=== PATIENT | female | born 2000 | race Caucasian/White ===

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

== ENCOUNTER 2020-02-01 13:04 | Emergency (ER) | payer MEDICAID ==
[~2020-02-01] VITALS: Ht 167.7 cm; Wt 81.6 kg
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
== END 2020-02-01 13:47 | disposition home or self-care (01) ==
LOC: EDUNIT# 13:04 → ER FS 13:06
DX: T25.021A Burn of unspecified degree of right foot, initial encounter (principal); X12.XXXA Contact with other hot fluids, initial encounter
CPT/HCPCS: 99281

== ENCOUNTER 2020-02-24 10:19 | Emergency (ER) | payer MEDICAID ==
[~2020-02-24] VITALS: Ht 162.6 cm; Wt 83.7 kg
[2020-02-24 10:37] LABS: CLARITY,URINE SL CLOUDY; COLOR,URINE DARK YELLOW; GLUCOSE, URINE (UA) NEGATIVE (NEGATIVE); KETONES,URINE NEGATIVE (NEGATIVE); NITRITE,URINE NEGATIVE (NEGATIVE); PROTEIN,URINE NEGATIVE (NEGATIVE)
[2020-02-24 10:38] LABS: BACTERIA,URINE MODERATE /HPF; BILIRUBIN,URINE NEGATIVE (NEGATIVE); LEUKOCYTE ESTERASE ,URINE NEGATIVE (NEGATIVE)
[2020-02-24] MEDS ORDERED: ACETAMINOPHEN 325 MG TABLET PO ONE (10:45)
--- NOTE | 2020-02-24 10:49 | ED GU-Female ---
General Chief Complaint: OB > 20 WEEKS Stated Complaint: ABD PAIN - 21 WKS PREG Nursing Triage Note: Patient reports she is 21 weeks , states she began having constant, cramping, bilateral lower abdominal pain and pressure approximately 15 minutes ago. She denies any vaginal bleeding, reports white vaginal discharge x 1 week, denies any nausea/vomiting. She states this is her first , states she has not yet had an ultrasound, states she is seeing Dr. Lui for her care. History of Present Illness Date Seen by Provider: Feb 24, 2020 Time Seen by Provider: 10:15 Initial Comments The patient is a 19-year-old female with a history of essential hypertension on labetalol, at approximately 21 weeks by last menstrual period. She is following with Dr. Lui for obstetric care but has not yet had an ultrasound confirmatory of an intrauterine . She presents for evaluation of acute onset of significant low midline crampy abdominal discomfort which had onset 15 minutes prior to arrival while she was resting in bed. Discomfort is constant and nothing seems to make it better or worse; it is not intermittent and/or rhythmic. Severity 8 out of 10 at present. She has not had this pain before. No associated fevers, nausea or vomiting, upper respiratory congestion/rhinorrhea, cough, shortness of breath or chest pain of any kind, upper or specifically right-sided abdominal pain, flank pain, back pain, dysuria or hematuria, vaginal bleeding. Patient has had some whitish vaginal discharge over the last week. She reports being monogamous with one long-term partner. No therapy for discomfort prior to arrival. Patient is alert and pleasantly and appropriately interactive and in no acute distress upon initial assessment. In the emergency department. 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 Allergies and Home Medications Allergies Coded Allergies: No Known Drug Allergies (Unverified , 10/29/19) Home Medications Acetaminophen with Codeine 1 Each Tablet, 1 EACH PO Q6H Prescribed by: ANIBAL RODRIGUEZ on 02/24/20 1124 Nitrofurantoin Monohyd/M-Cryst 100 Mg Capsule, 1 TAB PO BID Prescribed by: ANIBAL RODRIGUEZ on 02/24/20 1124 Patient Home Medication List Home Medication List Reviewed: Yes Review of Systems Review of Systems Constitutional: no symptoms reported : Yes All Other Systemes Reviewed Negative Unless Noted: Yes Past Mziklfe-Qwzndq-Drdhqy Hx Past Med/Social Hx: Reviewed Nursing Past Med/Soc Hx Patient Social History 2nd Hand Smoke Exposure: No Recent Foreign Travel: No Contact w/Someone Who Travel: No Recent Infectious Disease Expo: No Recent Hopitalizations: No Ebola Symptoms: Denies Symptoms Listed Seasonal Allergies Seasonal Allergies: No Past Medical History Surgeries: No Respiratory: No Cardiac: No Heart Attack Neurological: No Hx : 1 Genitourinary: No Gastrointestinal: No Musculoskeletal: No Endocrine: No HEENT: No Cancer: No Psychosocial: No Integumentary: No Blood Disorders: No Family Medical History Reviewed Nursing Family Hx Physical Exam Vital Signs Vital Signs - First Documented 02/24/20 10:25 Temp 36.7 Pulse 120 Resp 16 B/P (MAP) 136/94 Pulse Ox 98 O2 Delivery Room Air Capillary Refill : Height, Weight, BMI Height: '" Weight: lbs. oz. kg; 31.00 BMI Method: General Appearance: no apparent distress This is a young female appearing nontoxic and in no acute distress. Head is normocephalic and atraumatic. Neck is supple and nontender. Oropharynx is moist. Lungs are clear to auscultation at all stations. There is a normal S1 and S2 without rubs or gallops and capillary refill is appropriate, less than 2 seconds globally. Abdomen is soft and nondistended with mild low midline > bilateral lower quadrant tenderness to palpation without rebound or guarding. Skin is warm and dry without cyanosis, clubbing or edema. Psychiatrically, the patient demonstrates appropriate mood and affect and is alert. Genitourinary examination reveals normal external genitalia without rashes or lesions and without inguinal lymphadenopathy noted. Upon speculum examination, vaginal vault appears unremarkable with pink, healthy rugae. There is a modest amount of whitish discharge noted to the posterior aspect of the vault. No cervical erythema or friability. Cervix is closed. No blood noted. No CMT or adnexal tenderness. Progress/Results/Core Measures Suspected Sepsis SIRS Temperature: Pulse: Respiratory Rate: Blood Pressure / Mean: Results/Orders Lab Results Laboratory Tests Test 02/24/20 10:20 02/24/20 10:45 Range/Units Urine Color DARK YELLOW Urine Clarity SL CLOUDY Urine pH 6.0 5-9 Urine Specific [place] 1.025 H 1.016-1.022 Urine Protein NEGATIVE NEGATIVE Urine Glucose (UA) NEGATIVE NEGATIVE Urine Ketones NEGATIVE NEGATIVE Urine Nitrite NEGATIVE NEGATIVE Urine Bilirubin NEGATIVE NEGATIVE Urine Urobilinogen 0.2 < = 1.0 MG/DL Urine Leukocyte Esterase NEGATIVE NEGATIVE Urine RBC (Auto) NEGATIVE NEGATIVE Urine RBC NONE /HPF Urine WBC 5-10 H /HPF Urine Squamous Epithelial Cells 10-25 H /HPF Urine Crystals NONE /LPF Urine Bacteria MODERATE H /HPF Urine Casts NONE /LPF Urine Mucus MODERATE H /LPF Urine Culture Indicated YES Micro Results Microbiology 02/24/20 Wet Prep - Final, Complete My Orders Orders - ANIBAL RODRIGUEZ MD Ua Culture If Indicated (02/24/20 10:22) Acetaminophen Tablet/Caplet (Tylenol T (02/24/20 10:45) Wet Prep (02/24/20 10:32) Neisseria Gonorrhea Swab (02/24/20 10:32) Chlamydia Trachomatis Swab (02/24/20 10:32) Urine Culture (02/24/20 10:20) Nitrofurantoin Capsule,Macro (Macrobid C (02/24/20 11:15) Medications Given in ED Current Medications Medications Dose Ordered Sig/Juliana Route Start Time Stop Time Status Last Admin Dose Admin Acetaminophen 975 mg ONCE ONCE PO 02/24/20 10:45 02/24/20 10:46 DC 02/24/20 10:54 975 MG Nitrofurantoin Macrocrystals 100 mg ONCE ONCE PO 02/24/20 11:15 02/24/20 11:16 DC 02/24/20 11:15 100 MG Vital Signs/I&O 02/24/20 10:25 Temp 36.7 Pulse 120 Resp 16 B/P (MAP) 136/94 Pulse Ox 98 O2 Delivery Room Air Capillary Refill : Progress Note : Time: 10:52 Progress Note Well-appearing 19-year-old female, at 21 weeks by last menstrual period, no confirmatory ultrasound yet obtained, who presents for evaluation of low midline crampy abdominal discomfort with acute onset while she was resting in bed prior to arrival. Pain is constant and achy and is not rhythmic and recurrent. Pelvic examination completed and wet prep and swabs obtained and sent. We'll check urinalysis and urine culture if indicated, give Tylenol for discomfort, and we'll check a bedside obstetric ultrasound to further evaluate the patient's discomfort. Anticipate a conversation with Dr. Lui for disposition. 1118: Bedside transabdominal obstetric ultrasound completed. Intrauterine visualized generally appropriate to stated dates with excellent movement and heart rate in the 160s. Wet prep and urinalysis results reviewed and there is some evidence of urinary tract infection which we will treat with a course of Macrobid. Whitish discharge in the vaginal vault seems most consistent with typical discharge however GC/chlam swabs have been sent and will need to be followed up on. Patient states she has not had much relief of pain yet with Tylenol administration. Case is discussed in detail with Dr. Lui who feels pain is most consistent with round ligament discomfort. He recommends discharge home with a short course of Tylenol with Codeine which the patient may use as needed for discomfort and close follow-up with him immediately after the weekend. We will give the patient's pain medication some more time to work and if necessary will give her a dose of something stronger. 1150: Patient is resting comfortably in no acute distress upon reassessment. She has received a dose of oral oxycodone here in the emergency department. She feels ready to go home. We will proceed with discharge home at this time. We'll provide Dr. Lui's contact information so that the patient may contact him directly with any concerns at home over the long weekend. She is to follow-up with him in the office immediately after the long weekend. She does understand that if she feels worse is that of better or develops other new symptoms of concern that she will need to return to the emergency department right away for reevaluation. All questions are answered. Departure Impression Primary Impression: Abdominal pain affecting , antepartum Additional Impression: Acute cystitis without hematuria Disposition: HOME, SELF-CARE Condition: Improved Departure-Patient Inst. Referrals: ESTEBAN LUI DO Patient Instructions: Stomach Pain Later in , Urinary Tract Infections in Adults Add. Discharge Instructions: Please follow-up with Dr. Lui in the office on Tuesday, immediately after the long weekend, for a reevaluation of your symptoms and a discussion of next best steps in care. Use the pain medication as prescribed for discomfort, every 6 hours as needed. Take the antibiotic until the prescription is gone for treatment of urinary tract infection. Return to the emergency department right away with worsening symptoms of any kind or with any other new symptoms of concern. Scripts Nitrofurantoin Monohyd/M-Cryst (Macrobid 100 mg Capsule) 100 Mg Capsule 1 TAB PO BID for 7 Days, #14 CAP Prov: ANIBAL RODRIGUEZ MD 02/24/20 Acetaminophen with Codeine (Acetaminophen-Cod #3 Tablet) 1 Each Tablet 1 EACH PO Q6H for Breakthrough Pain, #10 TAB Prov: ANIBAL RODRIGUEZ MD 02/24/20 ANIBAL RODRIGUEZ MD Feb 24, 2020 10:49
[2020-02-24] MEDS ORDERED: NITROFURANTOIN 100 MG (MACROBID) CAPSULE PO ONE (11:15)
[2020-02-24] MEDS ORDERED: NITR-65 PO (11:24)
[2020-02-24] MEDS ORDERED: ACET1TAB43 PO (11:24)
== END 2020-02-24 12:07 | disposition home or self-care (01) ==
LOC: EDUNIT# 10:19 → ER FS 10:21
DX: O23.12 Infections of bladder in pregnancy, second trimester (principal); O16.2 Unspecified maternal hypertension, second trimester; I25.2 Old myocardial infarction; Z3A.21 21 weeks gestation of pregnancy
CPT/HCPCS: 36415; 81000; 87088; 87210; 87491; 87591

== ENCOUNTER 2020-10-03 17:16 | Emergency (ER) | payer MEDICAID ==
[~2020-10-03] VITALS: Ht 167.7 cm; Wt 90.7 kg
[~2020-10-03 17:16] MED LIST: ACET1TAB43 PO; NITR-65 PO
--- NOTE | 2020-10-03 18:04 | ED Abdominal Pain ---
General Chief Complaint: Abdominal/GI Problems Stated Complaint: BACK AND BILAT SIDE PAIN Nursing Triage Note: PT C/O FLANK/ABD PAIN ONSET 40MIN AGO Sepsis Screen: No Definite Risk Source of Information: Patient Exam Limitations: No Limitations History of Present Illness Date Seen by Provider: Oct 03, 2020 Time Seen by Provider: 18:03 Initial Comments Patient is a 20-year-old female who presents to the emergency department today with a chief complaint of midsternal sharp chest discomfort as well as diffuse abdominal discomfort. Patient states the chest discomfort started about 40 minutes prior to arrival and the abdominal pain started around 4:00 when she woke up from and from a nap. Patient describes the abdominal pain is crampy and "a 10". She denies nausea, vomiting, diarrhea or constipation. Patient states her last bowel movement was just prior to laying down at 3:00. Patient is 3 months . She is not breast-feeding. No recent illnesses, fevers, chills, productive cough. No burning with urination urgency or frequency. Pat ient states that she did not take anything for the pain she just got up from her nap and came directly to the hospital. Patient states that she was supposed to work at 6:00 but did not feel like she could do this. Taking a deep breath makes the chest discomfort worse. Patient also endorses a little dizziness and lightheadedness. Palpation of the abdomen makes her pain worse nothing makes it any better. Timing/Duration: 1-3 Hours Severity/Quality: Severe ("10" however, patient's demeanor does not match this) Location: RUQ, RLQ Radiation: Flank (right flank) Activities at Onset: None, Rest Associated Symptoms: Denies Symptoms Allergies and Home Medications Allergies Coded Allergies: No Known Drug Allergies (Unverified , 10/29/19) Home Medications Acetaminophen with Codeine 1 Each Tablet, 1 EACH PO Q6H Prescribed by: ANIBAL RODRIGUEZ on 02/24/20 112 Nitrofurantoin Monohyd/M-Cryst 100 Mg Capsule, 1 TAB PO BID Prescribed by: ANIBAL RODRIGUEZ on 02/24/20 112 Patient Home Medication List Home Medication List Reviewed: Yes Review of Systems Review of Systems Constitutional: see HPI EENTM: No Symptoms Reported Respiratory: No Symptoms Reported Cardiovascular: Chest Pain (sharp chest discomfort) Gastrointestinal: Abdominal Pain; Denies Constipated, Denies Diarrhea, Denies Nausea Genitourinary: No Symptoms Reported Musculoskeletal: no symptoms reported Skin: no symptoms reported Psychiatric/Neurological: Headache (mild) Past Sripfin-Tuuewa-Ufcexi Hx Patient Social History Alcohol Use: Denies Use Smoking Status: Never a Smoker 2nd Hand Smoke Exposure: No Recent Infectious Disease Expo: No Recent Hopitalizations: No Seasonal Allergies Seasonal Allergies: No Past Medical History Surgeries: No Respiratory: No Cardiac: Yes Hypertension Neurological: No Genitourinary: No Gastrointestinal: No Musculoskeletal: No Endocrine: No HEENT: No Cancer: No Psychosocial: No Integumentary: No Blood Disorders: No Physical Exam Vital Signs Vital Signs - First Documented 10/03/20 17:27 Temp 36.0 Pulse 81 Resp 17 B/P (MAP) 132/69 (90) Pulse Ox 98 O2 Delivery Room Air Capillary Refill : Less Than 3 Seconds Height/Weight/BMI Height: '" Weight: lbs. oz. kg; 32.00 BMI Method: General Appearance: WD/WN, no apparent distress HEENT: PERRL/EOMI Neck: full range of motion Respiratory: lungs clear, normal breath sounds, no respiratory distress, no accessory muscle use Cardiovascular: regular rate, rhythm Gastrointestinal: soft, tenderness (mild difuse tenderness, nost prominent in the RLQ; no rebound, guarding or other peritoneal findings) Neurologic/Psychiatric: alert, normal mood/affect, oriented x 3 Skin: normal color, warm/dry Progress/Results/Core Measures Results/Orders Lab Results Laboratory Tests Test 10/03/20 18:43 10/03/20 18:48 Range/Units White Blood Count 8.0 4.3-11.0 10^3/uL Red Blood Count 4.65 3.80-5.11 10^6/uL Hemoglobin 11.9 11.5-16.0 g/dL Hematocrit 39 35-52 % Mean Corpuscular Volume 83 80-99 fL Mean Corpuscular Hemoglobin 26 25-34 pg Mean Corpuscular Hemoglobin Concent 31 L 32-36 g/dL Red Cell Distribution Width 15.6 H 10.0-14.5 % Platelet Count 378 130-400 10^3/uL Mean Platelet Volume 10.4 9.0-12.2 fL Immature Granulocyte % (Auto) 0 % Neutrophils (%) (Auto) 57 42-75 % Lymphocytes (%) (Auto) 32 12-44 % Monocytes (%) (Auto) 9 0-12 % Eosinophils (%) (Auto) 2 0-10 % Basophils (%) (Auto) 1 0-10 % Neutrophils # (Auto) 4.6 1.8-7.8 10^3/uL Lymphocytes # (Auto) 2.5 1.0-4.0 10^3/uL Monocytes # (Auto) 0.7 0.0-1.0 10^3/uL Eosinophils # (Auto) 0.1 0.0-0.3 10^3/uL Basophils # (Auto) 0.0 0.0-0.1 10^3/uL Immature Granulocyte # (Auto) 0.0 0.0-0.1 10^3/uL Sodium Level 139 135-145 MMOL/L Potassium Level 3.8 3.6-5.0 MMOL/L Chloride Level 103 98-107 MMOL/L Carbon Dioxide Level 22 21-32 MMOL/L Anion Gap 14 5-14 MMOL/L Blood Urea Nitrogen 12 7-18 MG/DL Creatinine 0.63 0.60-1.30 MG/DL Estimat Glomerular Filtration Rate > 60 BUN/Creatinine Ratio 19 Glucose Level 95 70-105 MG/DL Calcium Level 8.9 8.5-10.1 MG/DL Corrected Calcium 8.7 8.5-10.1 MG/DL Total Bilirubin 0.2 0.1-1.0 MG/DL Aspartate Amino Transf (AST/SGOT) 15 5-34 U/L Alanine Aminotransferase (ALT/SGPT) 15 0-55 U/L Alkaline Phosphatase 85 40-136 U/L Total Protein 7.2 6.4-8.2 GM/DL Albumin 4.2 3.2-4.5 GM/DL Lipase 21 8-78 U/L Urine Color YELLOW Urine Clarity SL CLOUDY Urine pH 6.5 5-9 Urine Specific [place] 1.015 L 1.016-1.022 Urine Protein NEGATIVE NEGATIVE Urine Glucose (UA) NEGATIVE NEGATIVE Urine Ketones NEGATIVE NEGATIVE Urine Nitrite NEGATIVE NEGATIVE Urine Bilirubin NEGATIVE NEGATIVE Urine Urobilinogen 0.2 < = 1.0 MG/DL Urine Leukocyte Esterase 1+ H NEGATIVE Urine RBC (Auto) NEGATIVE NEGATIVE Urine RBC NONE /HPF Urine WBC 0-2 /HPF Urine Squamous Epithelial Cells 2-5 /HPF Urine Crystals NONE /LPF Urine Bacteria FEW H /HPF Urine Casts NONE /LPF Urine Mucus NEGATIVE /LPF Urine Culture Indicated NO My Orders Orders - FLETCHER HOLLEY MD Cbc With Automated Diff (10/03/20 18:24) Comprehensive Metabolic Panel (10/03/20 18:24) Lipase (10/03/20 18:24) Ua Culture If Indicated (10/03/20 18:24) Urine Bedside (10/03/20 18:24) Ed Iv/Invasive Line Start (10/03/20 18:24) Ketorolac Injection (Toradol Injection) (10/03/20 19:15) Medications Given in ED Current Medications Medications Dose Ordered Sig/Juliana Route Start Time Stop Time Status Last Admin Dose Admin Ketorolac Tromethamine 15 mg ONCE ONCE IVP 10/03/20 19:15 10/03/20 19:16 10/03/20 19:11 15 MG Vital Signs/I&O 10/03/20 17:27 Temp 36.0 Pulse 81 Resp 17 B/P (MAP) 132/69 (90) Pulse Ox 98 O2 Delivery Room Air Blood Pressure Mean: 90 Progress Progress Note : Time: 19:11 Progress Note Basic laboratory studies obtained and evaluated including CBC, Chem-12 with lipase urinalysis and urine test. All of her lab work was within normal limits. No clinical or objective findings to warrant further testing or imaging at this time. Patient has no leukocytosis, alterations in liver function studies to suggest gallbladder disease or an inflammatory response. Urine is clean and test is negative. Patient's vital signs have been stable. She is treated in the emergency department with 15 mg of Toradol IV. I have reviewed her results with her and her significant other who is at the bedside. I have instructed her to eat a bland diet for the next 24 hours and push lots of fluids. I have given her return precautions which include to come back to the emergency room if she has worsening abdominal pain, nausea vomiting or fever. She verbalizes understanding. All questions have been sought and answered. Patient is stable for discharge. Departure Impression Primary Impression: Abdominal pain Qualified Codes: R10.84 - Generalized abdominal pain Additional Impression: Pleuritic chest pain Disposition: 01 HOME, SELF-CARE Condition: Stable Departure-Patient Inst. Decision time for Depature: 19:17 Referrals: YEISON SWEET MD (PCP/Family) Primary Care Physician Patient Instructions: Chest Pain That Is Not Caused by the Heart (DC), Abdominal Pain, Adult ED Add. Discharge Instructions: Drink lots of fluids to stay well-hydrated. You can take oroc-sse-qdrqviy Tylenol or ibuprofen for mild pain as needed. Please come back to the emergency department if you have worsening abdominal pain, nausea vomiting, fever or any other emergent concerning symptoms. Please follow-up with your primary care doctor as needed. FLETCHER HOLLEY MD Oct 03, 2020 18:04
[2020-10-03 18:49] LABS: BASOPHILS % (AUTO) 1 % (0-10); EOSINOPHILS # (AUTO) 0.1 10^3/uL (0.0-0.3); EOSINOPHILS % (AUTO) 2 % (0-10); HEMATOCRIT 39 % (35-52); HEMOGLOBIN 11.9 g/dL (11.5-16.0); LYMPHOCYTES # (AUTO) 2.5 10^3/uL (1.0-4.0); LYMPHOCYTES % (AUTO) 32 % (12-44); MEAN CORPUSCULAR HEMOGLOBIN 26 pg (25-34); MEAN CORPUSCULAR HGB CONC 31 g/dL (32-36); MEAN CORPUSCULAR VOLUME 83 fL (80-99); MEAN PLATELET VOLUME 10.4 fL (9.0-12.2); MONOCYTES # (AUTO) 0.7 10^3/uL (0.0-1.0); MONOCYTES % (AUTO) 9 % (0-12); NEUTROPHILS # (AUTO) 4.6 10^3/uL (1.8-7.8); NEUTROPHILS % (AUTO) 57 % (42-75); PLATELET COUNT 378 10^3/uL (130-400)
[2020-10-03 18:54] LABS: BILIRUBIN,URINE NEGATIVE (NEGATIVE); CLARITY,URINE SL CLOUDY; COLOR,URINE YELLOW; GLUCOSE, URINE (UA) NEGATIVE (NEGATIVE); KETONES,URINE NEGATIVE (NEGATIVE); LEUKOCYTE ESTERASE ,URINE 1+ (NEGATIVE); NITRITE,URINE NEGATIVE (NEGATIVE); PH,URINE 6.5 (5-9); PROTEIN,URINE NEGATIVE (NEGATIVE)
[2020-10-03 18:59] LABS: ALBUMIN 4.2 GM/DL (3.2-4.5)
[2020-10-03 19:00] LABS: BACTERIA,URINE FEW /HPF; WBC,URINE 0-2 /HPF
[2020-10-03 19:00] LABS: CHLORIDE 103 MMOL/L (98-107); POTASSIUM 3.8 MMOL/L (3.6-5.0); SODIUM 139 MMOL/L (135-145)
[2020-10-03 19:01] LABS: CALCIUM 8.9 MG/DL (8.5-10.1)
[2020-10-03 19:02] LABS: GLUCOSE 95 MG/DL (70-105); TOTAL PROTEIN 7.2 GM/DL (6.4-8.2)
[2020-10-03 19:03] LABS: CARBON DIOXIDE 22 MMOL/L (21-32)
[2020-10-03 19:04] LABS: BILIRUBIN,TOTAL 0.2 MG/DL (0.1-1.0)
[2020-10-03 19:05] LABS: ALKALINE PHOSPHATASE 85 U/L (40-136); CREATININE SERUM 0.63 MG/DL (0.60-1.30); GFR ESTIMATED > 60
[2020-10-03 19:06] LABS: BUN/CREATININE RATIO 19
[2020-10-03 19:08] LABS: ALANINE AMINOTRANSFERASE 15 U/L (0-55)
[2020-10-03 19:09] LABS: LIPASE 21 U/L (8-78)
[2020-10-03] MEDS ORDERED: KETOROLAC 30 MG/ML VIAL IVP ONE (19:15)
[2020-10-03 19:21] VITALS: BP 120/78
== END 2020-10-03 19:24 | disposition home or self-care (01) ==
LOC: EDUNIT# 17:16 → ER 17:17
DX: R10.84 Generalized abdominal pain (principal); R07.81 Pleurodynia; I10 Essential (primary) hypertension
CPT/HCPCS: 36415; 80053; 81000; 83690; 84703; 85025

== ENCOUNTER 2021-02-18 23:13 | Emergency (ER) | payer MEDICAID ==
[~2021-02-18] VITALS: Ht 167.7 cm; Wt 90.9 kg
--- OUTSIDE RECORDS SUMMARY | 2021-02-18 23:22 | XMS REPORT | Clinical Summary ---
Author Author [facility] Organization [facility] Address Unknown Phone Unavailable Care Team Providers Care Control Systems Specialist Name Role Phone Montez Gamble MD PCP Source Comments Some departments are not documenting in the electronic medical record. 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 Social History Date Tobacco Use Types Packs/Day Years Used Never Assessed Sex Assigned at Date Recorded Not on file Last Filed Vital Signs Reading Time Taken Comments Vital Sign 94/46 09/24/2016 12:00 PM CDT Blood Pressure 75 09/24/2016 12:00 PM CDT Pulse 36.7 C (98.1 F) 09/24/2016 12:00 PM CDT Temperature - - Respiratory Rate 99% 09/24/2016 12:00 PM CDT Oxygen Saturation - - Inhaled Oxygen Concentration 63.5 kg (140 lb) 09/23/2016 4:10 PM CDT Weight 164 cm (5' 4.57") 09/23/2016 4:10 PM CDT Height 23.61 09/23/2016 4:10 PM CDT Body Mass Index Plan of Treatment Health Maintenance Due Date Last Done Comments CHLAMYDIA SCREENING 18-24 2000 YEARS HPV VACCINES (1 - 2-dose 09/06/2011 series) HIV SCREENING 09/06/2015 DTAP/TDAP VACCINES (1 - 2018 Tdap) HEPATITIS C SCREENING 2018 PHYSICAL (COMPREHENSIVE) 2018 EXAM INFLUENZA VACCINE 03/20/2021 MENINGOCOCCAL VACCINE Aged Out No longer eligib le based on patient's age to ([place] TRIPP) complete this topic Results Not on filefrom Last 3 Months Insurance Type Payer Benefit Subscriber ID Effective Phone Address Plan / Dates Group Medicaid UHC [place]ICAID [place] UHC [id number] 2016-P [employer] [place] Guarantor Name Account Relation to Date of Phone Billin g Address Type Patient ANA HUI Personal/F Mother [phone] [address] [facility] (Home) [place] [phone] Advance Directives Patient Toter Explanation Type Date Recorded Advance 09/23/2016 3:10 PM Directive/DPOA Date Inactivated Comments Code Status Date Activated 09/24/2016 2:49 PM Full Code 09/23/2016 1:59 PM Provider has discussed Code Status No, discussion no t w/Patient or Family? necessary based on Dx
[2021-02-18 23:52] LABS: BASOPHILS % (AUTO) 0 % (0-10); EOSINOPHILS # (AUTO) 0.2 10^3/uL (0.0-0.3); EOSINOPHILS % (AUTO) 2 % (0-10); HEMATOCRIT 37 % (35-52); LYMPHOCYTES # (AUTO) 2.9 10^3/uL (1.0-4.0); LYMPHOCYTES % (AUTO) 27 % (12-44); MEAN CORPUSCULAR HEMOGLOBIN 28 pg (25-34); MEAN CORPUSCULAR HGB CONC 33 g/dL (32-36); MEAN CORPUSCULAR VOLUME 84 fL (80-99); MEAN PLATELET VOLUME 10.8 fL (9.0-12.2); MONOCYTES # (AUTO) 1.2 10^3/uL (0.0-1.0); MONOCYTES % (AUTO) 11 % (0-12); NEUTROPHILS # (AUTO) 6.5 10^3/uL (1.8-7.8); NEUTROPHILS % (AUTO) 60 % (42-75); PLATELET COUNT 345 10^3/uL (130-400); WHITE BLOOD COUNT 10.8 10^3/uL (4.3-11.0)
--- NOTE | 2021-02-19 00:03 | ED GU-Female ---
General Stated Complaint: PERIOD AFTER 7 MONTHS,ABD PAIN CRAMPING,DIZZY, Source: patient History of Present Illness Date Seen by Provider: Feb 18, 2021 Time Seen by Provider: 23:33 Initial Comments PT ARRIVES VIA POV FROM HOME STATES SHE DELIVERED 07/01/20 BREASTFED X 1 MONTH HAS NOT HAD A PERIOD SINCE SHE DELIVERED, AND HAS NOT BEEN ON ANY CONTROL THIS AM ON WAKING, SHE STARTED BLEEDING--DARK RED BLOOD WITH A FEW SMALL CLOTS STATES SHE HAS CONTINUED TO BLEED TODAY AND CLAIMS SHE HAS USED 16 TAMPONS TODAY HAS NOT USED ANY PADS TODAY HAS SOME CRAMPING OFF AND ON HAS FELT A LITTLE DIZZY TODAY NO NAUSEA/VOMITING NO URINARY SYMPTOMS HAS NOT SEEN HER OB SINCE HER REGULAR POST CHECK HAS NOT SEEN ANYONE FOR THIS PROBLEM OF NO PERIODS HAS NOT DONE ANY HOME TESTS PT IS PCP: DR. SWEET COACH OPERATOR: DR. LEVINE Allergies and Home Medications Allergies Coded Allergies: No Known Drug Allergies (Unverified , 10/29/19) Home Medications Acetaminophen with Codeine 1 Each Tablet, 1 EACH PO Q6H Prescribed by: ANIBAL RODRIGUEZ on 02/24/20 1124 Nitrofurantoin Monohyd/M-Cryst 100 Mg Capsule, 1 TAB PO BID Prescribed by: ANIBAL RODRIGUEZ on 02/24/20 1124 Patient Home Medication List Home Medication List Reviewed: Yes Review of Systems Review of Systems Constitutional: see HPI, dizziness Respiratory: no symptoms reported Cardiovascular: no symptoms reported Gastrointestinal: see HPI (CRAMPING) Genitourinary: see HPI (VAGINAL BLEEDING AND CRAMPING) : No Musculoskeletal: no symptoms reported Skin: no symptoms reported Psychiatric/Neurological: No Symptoms Reported Endocrine: No Symptoms Reported Hematologic/Lymphatic: No Symptoms Reported Past Glhgfaj-Xkjupj-Wbsolk Hx Seasonal Allergies Seasonal Allergies: No Past Medical History Surgeries: No Respiratory: No Cardiac: Yes Hypertension Neurological: No Genitourinary: No Gastrointestinal: No Musculoskeletal: No Endocrine: No HEENT: No Cancer: No Psychosocial: No Integumentary: No Blood Disorders: No Physical Exam Vital Signs Vital Signs - First Documented 02/18/21 23:25 Temp 36.2 Pulse 95 Resp 18 B/P (MAP) 137/72 (93) Pulse Ox 99 O2 Delivery Room Air Capillary Refill : Height, Weight, BMI Height: '" Weight: lbs. oz. kg; 32.00 BMI Method: General Appearance: WD/WN, no apparent distress, other (WALKS UPRIGHT AND MOVES WITHOUT DIFFICULTY. DOES NOT APPEAR TO BE IN ANY DISCOMFORT OR DISTRESS. ) HEENT: PERRL/EOMI; No pale conjunctivae (R), No pale conjunctivae (L) Cardiovascular: regular rate, rhythm, no murmur Respiratory: normal breath sounds Gastrointestinal: non tender, soft Back: no CVA tenderness Extremities: normal inspection Neurologic/Psychiatric: no motor/sensory deficits, alert, normal mood/affect, oriented x 3 Skin: normal color, warm/dry; No pallor Progress/Results/Core Measures Suspected Sepsis SIRS Temperature: Pulse: Respiratory Rate: Laboratory Tests 02/18/21 23:47: White Blood Count 10.8 Blood Pressure / Mean: Laboratory Tests 02/18/21 23:47: Platelet Count 345 Results/Orders Lab Results Laboratory Tests Test 02/18/21 23:47 Range/Units White Blood Count 10.8 4.3-11.0 10^3/uL Red Blood Count 4.37 3.80-5.11 10^6/uL Hemoglobin 12.0 11.5-16.0 g/dL Hematocrit 37 35-52 % Mean Corpuscular Volume 84 80-99 fL Mean Corpuscular Hemoglobin 28 25-34 pg Mean Corpuscular Hemoglobin Concent 33 32-36 g/dL Red Cell Distribution Width 14.1 10.0-14.5 % Platelet Count 345 130-400 10^3/uL Mean Platelet Volume 10.8 9.0-12.2 fL Immature Granulocyte % (Auto) 0 % Neutrophils (%) (Auto) 60 42-75 % Lymphocytes (%) (Auto) 27 12-44 % Monocytes (%) (Auto) 11 0-12 % Eosinophils (%) (Auto) 2 0-10 % Basophils (%) (Auto) 0 0-10 % Neutrophils # (Auto) 6.5 1.8-7.8 10^3/uL Lymphocytes # (Auto) 2.9 1.0-4.0 10^3/uL Monocytes # (Auto) 1.2 H 0.0-1.0 10^3/uL Eosinophils # (Auto) 0.2 0.0-0.3 10^3/uL Basophils # (Auto) 0.0 0.0-0.1 10^3/uL Immature Granulocyte # (Auto) 0.0 0.0-0.1 10^3/uL My Orders Orders - NASREEN LEW DO Urine Bedside (02/18/21 23:33) Cbc With Automated Diff (02/18/21 23:38) Vital Signs/I&O 02/18/21 02/19/21 23:25 00:15 Temp 36.2 Pulse 95 94 Resp 18 16 B/P (MAP) 137/72 (93) 127/84 Pulse Ox 99 98 O2 Delivery Room Air Room Air Capillary Refill : Progress Note : Progress Note DID NOT USE ANY PADS OR TAMPONS DURING ER STAY Departure Impression Primary Impression: Heavy menstrual bleeding Additional Impression: FIRST PERIOD SINCE DELIVERY OF CHILD Disposition: HOME, SELF-CARE Condition: Stable Departure-Patient Inst. Decision time for Depature: 00:03 Referrals: YEISON SWEET MD (PCP/Family) Primary Care Physician ESTEBAN LEVINE DO Patient Instructions: Heavy Periods ED Add. Discharge Instructions: TYLENOL AND MOTRIN NEEDED FOR PAIN LOTS OF FLUIDS FOLLOW UP WITH YOUR COACH OPERATOR IF SYMPTOMS PERSIST NASREEN LEW DO Feb 19, 2021 00:03
[2021-02-19 00:15] VITALS: BP 127/84
== END 2021-02-19 00:15 | disposition home or self-care (01) ==
LOC: EDUNIT# 23:13 → ER 23:19
DX: N92.0 Excessive and frequent menstruation with regular cycle (principal); I10 Essential (primary) hypertension
CPT/HCPCS: 36415; 84703; 85025; 99282

== ENCOUNTER 2021-07-16 19:12 | Emergency (ER) | payer MEDICAID ==
[~2021-07-16] VITALS: Ht 162 cm; Wt 92.0 kg
[2021-07-16 19:25] VITALS: BP 125/86
[2021-07-16 19:59] LABS: BILIRUBIN,URINE NEGATIVE (NEGATIVE); CLARITY,URINE CLEAR; COLOR,URINE YELLOW; GLUCOSE, URINE (UA) NEGATIVE (NEGATIVE); KETONES,URINE 3+ (NEGATIVE); LEUKOCYTE ESTERASE ,URINE 1+ (NEGATIVE); NITRITE,URINE NEGATIVE (NEGATIVE); PROTEIN,URINE NEGATIVE (NEGATIVE)
[2021-07-16] MEDS ORDERED: LACTATED RINGERS 1,000 ML IV ONE ×2 (20:15→20:45)
[2021-07-16] MEDS ORDERED: PROMETHAZINE INJ 25 MG/ML (PHENERGAN) AMP IVP ONE (20:15)
[2021-07-16 20:20] LABS: AMORPHOUS SEDIMENT,UR FEW AMOR URATES /LPF; BACTERIA,URINE MODERATE /HPF
[2021-07-16] MEDS ORDERED: cefTRIAXone 1 GM PRE-MIX 50 ML IV STA (20:36)
--- NOTE | 2021-07-16 20:36 | ED GI ---
General Chief Complaint: Abdominal/GI Problems Stated Complaint: VOMITING Nursing Triage Note: PT PRESENTS TO ED FOR NOT BEING ABLE TO EAT OR DRINK. PT IS THREE MONTHS . PT AMB. TO ROOM 06 WITHOUT DIFFICULTY. REPORTS SHE HAD COVID TWO MONTHS AGO. Source of Information: Patient Exam Limitations: No Limitations History of Present Illness Date Seen by Provider: Jul 16, 2021 Time Seen by Provider: 19:42 Initial Comments This 20-year-old young lady at about 3 months gestational age presents to the emergency room with acute onset of nausea, vomiting, and abdominal cramping. She has not been able to hydrate well today. She has been keeping ice chips down but vomits anything she drinks. Her 1-year-old child is also vomiting and experiencing diarrhea. They both had COVID-19 about 2 months ago and have no respiratory symptoms or fever. Her abdominal cramping is not unusual when she has not been able to eat recently. She was initially quite tachycardic but that was when she was struggling with her child. At rest her heart rate is normal. She would appreciate something more for nausea and some IV hydration. She tried Zofran at home which was insufficient for controlling her nausea. Dr. Michael is her correspondence transcriber. Allergies and Home Medications Allergies Coded Allergies: No Known Drug Allergies (Unverified , 10/29/19) Patient Home Medication List Home Medication List Reviewed: Yes Acetaminophen with Codeine (Acetaminophen-Cod #3 Tablet) 1 Each Tablet, 1 EACH PO Q6H Prescribed by: ANIBAL RODRIGUEZ on 02/24/201123 Cephalexin (Cephalexin) 500 Mg Tablet, 500 MG PO TID Prescribed by: PALOMA BLUE on 07/16/212046 Nitrofurantoin Monohyd/M-Cryst (Macrobid 100 mg Capsule) 100 Mg Capsule, 1 TAB PO BID Prescribed by: ANIBAL RODRIGUEZ on 02/24/201123 Promethazine HCl (Promethazine Tablet) 25 Mg Tablet, 25 MG PO Q8H PRN for NAUSEA/VOMITING Prescribed by: PALOMA BLUE on 07/16/212046 Review of Systems Review of Systems Constitutional: no symptoms reported EENTM: No Symptoms Reported Respiratory: No Symptoms Reported Cardiovascular: No Symptoms Reported Gastrointestinal: See HPI Genitourinary: See HPI Musculoskeletal: no symptoms reported Skin: no symptoms reported Psychiatric/Neurological: No Symptoms Reported Endocrine: No Symptoms Reported Hematologic/Lymphatic: No Symptoms Reported Past Cwwdocc-Fxejoj-Dcgepp Hx Patient Social History Tobacco Use?: No Substance use?: No Alcohol Use?: No Pt feels they are or have been: No Seasonal Allergies Seasonal Allergies: No Past Medical History Surgery/Hospitalization HX: DENIES. Surgeries: No Respiratory: No Cardiac: Yes Hypertension Neurological: No Expected Date of Delivery: Jan 29, 2022 Genitourinary: No Gastrointestinal: No Musculoskeletal: No Endocrine: No HEENT: No Cancer: No Psychosocial: No Integumentary: No Blood Disorders: No Physical Exam Vital Signs Vital Signs - First Documented Capillary Refill : Less Than 3 Seconds Height/Weight/BMI Height: '" Weight: lbs. oz. kg; 35.00 BMI Method: General Appearance: WD/WN, no apparent distress HEENT: normal ENT inspection, other (Mucous membranes moist) Neck: normal inspection Respiratory: lungs clear, normal breath sounds, no respiratory distress Cardiovascular: regular rate, rhythm, no edema, no murmur Gastrointestinal: normal bowel sounds, soft, tenderness (Slight crampy tend erness in the left lower quadrant) Extremities: normal inspection, no pedal edema Neurologic/Psychiatric: no motor/sensory deficits, alert, normal mood/affect, oriented x 3 Skin: normal color, warm/dry Progress/Results/Core Measures Results/Orders Lab Results Laboratory Tests Test 07/16/21 19:51 07/16/21 20:45 Range/Units Urine Color YELLOW Urine Clarity CLEAR Urine pH 6.0 5-9 Urine Specific [place] >=1.030 1.016-1.022 Urine Protein NEGATIVE NEGATIVE Urine Glucose (UA) NEGATIVE NEGATIVE Urine Ketones 3+ H NEGATIVE Urine Nitrite NEGATIVE NEGATIVE Urine Bilirubin NEGATIVE NEGATIVE Urine Urobilinogen 0.2 < = 1.0 MG/DL Urine Leukocyte Esterase 1+ H NEGATIVE Urine RBC (Auto) NEGATIVE NEGATIVE Urine RBC NONE /HPF Urine WBC 5-10 H /HPF Urine Crystals PRESENT H /LPF Urine Amorphous Sediment FEW BREEZY URATES H /LPF Urine Bacteria MODERATE H /HPF Urine Casts NONE /LPF Urine Mucus NEGATIVE /LPF Urine Culture Indicated YES Sodium Level 136 135-145 MMOL/L Potassium Level 3.1 L 3.6-5.0 MMOL/L Chloride Level 105 98-107 MMOL/L Carbon Dioxide Level 15 L 21-32 MMOL/L Anion Gap 16 H 5-14 MMOL/L Blood Urea Nitrogen 10 7-18 MG/DL Creatinine 0.55 L 0.60-1.30 MG/DL Estimat Glomerular Filtration Rate 134 BUN/Creatinine Ratio 18 Glucose Level 91 70-105 MG/DL Calcium Level 8.7 8.5-10.1 MG/DL Magnesium Level 1.5 L 1.6-2.4 MG/DL Micro Results Microbiology 07/16/21 Urine Culture - Final, Complete See Comments My Orders Orders - PALOMA AGUILAR MD Ua Culture If Indicated (07/16/21 19:42) Ed Iv/Invasive Line Start (07/16/21 20:13) Lactated Ringers (Lr 1000 Ml Iv Solution (07/16/21 20:15) Promethazine Injection (Phenergan Injec (07/16/21 20:15) Urine Culture (07/16/21 19:51) Basic Metabolic Panel (07/16/21 20:36) Magnesium (07/16/21 20:36) Lactated Ringers (Lr 1000 Ml Iv Solution (07/16/21 20:45) Ceftriaxone 1 Gm Pre-Mix (Rocephin 1 Gm (07/16/21 20:36) Potassium Chloride (Tablet) (Klor Con Ta (07/16/21 21:30) Magnesium 1 Gm/100 Ml Ivpb (Magnesium Corbin (07/16/21 21:30) Medications Given in ED Vital Signs/I&O 07/16/21 07/16/21 19:25 19:25 Temp 36.5 36.5 Pulse 148 148 Resp 20 20 B/P (MAP) 125/86 125/86 (99) Pulse Ox 97 97 O2 Delivery Room Air Room Air Blood Pressure Mean: 99 Progress Progress Note : Time: 21:18 Progress Note Patient was found to have 3+ ketones in her urine suggesting significant hypovolemia. 2 L of LR were ordered. Phenergan was ordered as additional therapy to the Zofran she is taking at home. Electrolytes including potassium and magnesium were found to be low. Patient is receiving some potassium in the LR and will be additionally given oral potassium. A gram of magnesium will be given by IV route. Patient will be discharged as long as she is feeling relatively well after treatments. Rocephin is being given for UTI identified by urinalysis. Departure Impression Primary Impression: Urinary tract infection Qualified Codes: N39.0 - Urinary tract infection, site not specified Additional Impressions: Nausea and vomiting Qualified Codes: R11.2 - Nausea with vomiting, unspecified Hypokalemia Hypomagnesemia Disposition: 01 HOME, SELF-CARE Condition: Improved Departure-Patient Inst. Decision time for Depature: 20:43 Referrals: YEISON SWEET MD (PCP/Family) Primary Care Physician Patient Instructions: Nausea and Vomiting, Adult, Urinary Tract Infection, Adult ED Add. Discharge Instructions: You may continue using Zofran (ondansetron) as prescribed for nausea and vomiting. If this does not control your nausea well, you may add Phenergan (promethazine) as prescribed for additional control of nausea and vomiting. Use Phenergan with caution as it may cause drowsiness. You should not drive, make serious decisions, or operate machinery while taking this medication. Start with a clear liquid diet and gradually advance your diet with small quantities of bland food as tolerated. Avoid dairy and fatty or greasy foods for a few days. Complete your antibiotic as prescribed. Follow-up on urine culture results with your doctor early next week. Call with questions or concerns. Return to the ER if you have worsening symptoms. All discharge instructions reviewed with patient and/or family. Voiced understanding. Scripts Cephalexin (Cephalexin) 500 Mg Tablet 500 MG PO TID, #20 TAB Prov: PALOMA AGUILAR MD 07/16/21 Promethazine HCl (Promethazine Tablet) 25 Mg Tablet 25 MG PO Q8H PRN for NAUSEA/VOMITING, #10 TAB Prov: PALOMA AGUILAR MD 07/16/21 Copy Copies To 1: JOSUE MICHAEL DO Copies To 2: YEISON SWEET MD, JOSHUA T MD Jul 16, 2021 20:36
[2021-07-16] MEDS ORDERED: PROM25TA14 PO (20:47)
[2021-07-16] MEDS ORDERED: CEPH500T PO (20:47)
[2021-07-16 21:15] LABS: CALCIUM 8.7 MG/DL (8.5-10.1); CREATININE SERUM 0.55 MG/DL (0.60-1.30); MAGNESIUM 1.5 MG/DL (1.6-2.4); POTASSIUM 3.1 MMOL/L (3.6-5.0)
[2021-07-16] MEDS ORDERED: KCL 10 MEQ TAB (MICRO K) PO ONE (21:30)
[2021-07-16] MEDS ORDERED: MAGNESIUM 1 GM/100 ML IVPB 100 ML IV ONE (21:30)
== END 2021-07-16 23:05 | disposition home or self-care (01) ==
LOC: EDUNIT# 19:12 → ER 19:14
DX: N39.0 Urinary tract infection, site not specified (principal); R11.2 Nausea with vomiting, unspecified; E87.6 Hypokalemia; E83.42 Hypomagnesemia; I10 Essential (primary) hypertension
CPT/HCPCS: 36415; 80048; 81000; 83735; 87088; 99283

== ENCOUNTER → 2021-09-11 | Outpatient (CLI) | payer MEDICAID ==
[~2021-09-11] MED LIST changes: +CEPH500T PO; +PROM25TA14 PO
--- NOTE | 2021-09-11 16:58 | Diagnostic Imaging Report ---
INDICATION: Supervision during normal . TECHNIQUE: Multiple real-time grayscale images were obtained over the gravid uterus. COMPARISON: None. FINDINGS: Single viable intrauterine currently in a cephalic presentation. Normal amount of amniotic fluid. Placenta along the right lateral aspect without evidence for previa. Visualized anatomical structures including the kidneys, bladder, stomach, intracranial structures, four-chamber heart, three-vessel cord and insertion site, spine and extremities appearing unremarkable. Biometrical measurements are as follows: Biparietal 4.84 cm, age 20 weeks 5 days. Head circumference 18.18 cm, age 20 weeks 5 days. Abdominal circumference 14.47 cm, age 19 weeks 6 days. Femur length 3.24 cm, age 20 weeks 1 days. Sonographic estimate age: 20 weeks 3 days. Sonographic estimated date of delivery: 01/26/2022. Estimated Weight: 327 gm (+/- 48 gm). LMP percentile: 47%. heart rate: 146 beats per minute. number: 1 of 1. IMPRESSION: 1. Single intrauterine , currently in a cephalic orientation. 2. Sonographic estimated age of 20 weeks 3 days for an estimated date of delivery of 01/26/2022. 3. No abnormality is demonstrated at this time. Dictated by: Dictated on workstation # [id number]
== END ==
LOC: RAD 15:15
PROVIDERS: ATTEND Obstetrics & Gynecology
DX: Z34.92 Encounter for supervision of normal pregnancy, unspecified, second trimester (principal); Z36.89 Encounter for other specified antenatal screening; Z3A.20 20 weeks gestation of pregnancy
CPT/HCPCS: 76805

== ENCOUNTER 2021-12-01 00:44 | Outpatient (CLI) | payer MEDICAID ==
[~2021-12-01] VITALS: Ht 162 cm; Wt 96.8 kg
[~2021-12-01 00:44] MED LIST changes: +ACET-11 PO; -ACET1TAB43 PO
[2021-12-01 01:01] VITALS: BP 120/70
[2021-12-01 01:02] VITALS: BP 120/70
[2021-12-01 01:17] LABS: BILIRUBIN,URINE NEGATIVE (NEGATIVE); CLARITY,URINE CLEAR; COLOR,URINE YELLOW; GLUCOSE, URINE (UA) NEGATIVE (NEGATIVE); KETONES,URINE NEGATIVE (NEGATIVE); LEUKOCYTE ESTERASE ,URINE 3+ (NEGATIVE); NITRITE,URINE NEGATIVE (NEGATIVE); PROTEIN,URINE NEGATIVE (NEGATIVE)
[2021-12-01 01:44] LABS: BACTERIA,URINE LARGE /HPF; SQUAMOUS EPITHELIAL CELL,UR 25-50 /HPF
[2021-12-01] MEDS ORDERED: PREN-98 PO (01:56)
[2021-12-01] MEDS ORDERED: CEPHALEXIN 250 MG (KEFLEX) CAP PO ONE (02:00)
--- NOTE | 2021-12-02 08:35 | Physician Query-Final Dx ---
Clinic Account Progress/Dx Physician Query: Please give diagnosis Please include # weeks gestation Date of Service Dec 01, 2021 at 00:44 HOSEA,JunDec 02, 2021 08:35
== END 2021-12-01 02:05 | disposition home or self-care (01) ==
LOC: WSo 00:44 → LDRP 00:45 → WSo 02:05
PROVIDERS: ATTEND Family Medicine
DX: O26.893 Other specified pregnancy related conditions, third trimester (principal); R10.2 Pelvic and perineal pain; Z3A.32 32 weeks gestation of pregnancy
CPT/HCPCS: 81000; 87088; G0463; 99212

== ENCOUNTER 2022-01-12 11:14 | Outpatient (CLI) | payer MEDICAID ==
[~2022-01-12 11:14] MED LIST changes: +PREN-98 PO
[2022-01-12 11:30] VITALS: BP 128/76
[2022-01-12] MEDS ORDERED: IRON SUCROSE 200 MG/10 ML (VENOFER) VIAL IV ONE (12:00)
== END 2022-01-12 13:00 | disposition home or self-care (01) ==
LOC: SDC 11:14
PROVIDERS: ATTEND Family Medicine
DX: O99.019 Anemia complicating pregnancy, unspecified trimester (principal); Z3A.00 Weeks of gestation of pregnancy not specified
CPT/HCPCS: 96365

== ENCOUNTER 2022-01-21 17:59 | Inpatient (IN) | payer MEDICAID ==
[~2022-01-21] VITALS: Ht 167.7 cm; Wt 98.1 kg
[2022-01-21] VITALS (7 sets, daily range): BP systolic 113–140; BP diastolic 58–89
[2022-01-21] MEDS ORDERED: MINERAL OIL 30 ML TOP PRN (18:30)
[2022-01-21] MEDS ORDERED: LACTATED RINGERS 1,000 ML IV SCH (19:00)
[2022-01-21 19:11] LABS: BASOPHILS % (AUTO) 0 % (0-10); EOSINOPHILS # (AUTO) 0.1 10^3/uL (0.0-0.3); EOSINOPHILS % (AUTO) 1 % (0-10); HEMATOCRIT 28 % (35-52); HEMOGLOBIN 8.7 g/dL (11.5-16.0); LYMPHOCYTES # (AUTO) 1.8 10^3/uL (1.0-4.0); LYMPHOCYTES % (AUTO) 18 % (12-44); MEAN CORPUSCULAR HEMOGLOBIN 23 pg (25-34); MEAN CORPUSCULAR HGB CONC 31 g/dL (32-36); MEAN CORPUSCULAR VOLUME 76 fL (80-99); MEAN PLATELET VOLUME 11.7 fL (9.0-12.2); MONOCYTES # (AUTO) 0.9 10^3/uL (0.0-1.0); MONOCYTES % (AUTO) 9 % (0-12); NEUTROPHILS # (AUTO) 7.1 10^3/uL (1.8-7.8); NEUTROPHILS % (AUTO) 72 % (42-75); PLATELET COUNT 231 10^3/uL (130-400); WHITE BLOOD COUNT 9.8 10^3/uL (4.3-11.0)
[2022-01-21] MEDS: D5 LR IV SOLUTION 1,000 ML IV SCH (19:41)
[2022-01-21 20:35] LABS: CLARITY,URINE CLEAR; COLOR,URINE YELLOW; GLUCOSE, URINE (UA) NEGATIVE (NEGATIVE); PROTEIN,URINE TRACE (NEGATIVE)
[2022-01-21 20:36] LABS: BACTERIA,URINE LARGE /HPF; BILIRUBIN,URINE NEGATIVE (NEGATIVE); KETONES,URINE NEGATIVE (NEGATIVE); LEUKOCYTE ESTERASE ,URINE TRACE (NEGATIVE); NITRITE,URINE NEGATIVE (NEGATIVE); SQUAMOUS EPITHELIAL CELL,UR 25-50 /HPF
[2022-01-21] MEDS: CATHETER FLUSH 10 ML SYR IV SCH (21:16)
[2022-01-22] VITALS (27 sets, daily range): BP systolic 112–185; BP diastolic 53–115
[2022-01-22] MEDS: D5 LR IV SOLUTION 1,000 ML IV SCH ×2 (03:36→08:11)
[2022-01-22] MEDS ORDERED: ACETAMINOPHEN 500 MG TAB (TYLENOL) PO ONE (04:00)
[2022-01-22] MEDS: CATHETER FLUSH 10 ML SYR IV SCH (05:11)
[2022-01-22] MEDS ORDERED: ONDANSETRON 4 MG/2 ML (SDV) Z0FRAN IVP PRN (05:30)
[2022-01-22] MEDS ORDERED: BUTORPHANOL INJ 2 MG/ML (STADOL) VIAL IV ONE (05:30)
[2022-01-22] MEDS ORDERED: ONDANSETRON 4 MG/2 ML (SDV) Z0FRAN ONE (05:36)
[2022-01-22] MEDS ORDERED: BUTORPHANOL INJ 2 MG/ML (STADOL) VIAL ONE (05:36)
[2022-01-22] MEDS ORDERED: OXYTOCIN PRE-MIX DRIP 500 ML IV ONE ×2 (08:15→09:24)
[2022-01-22] MEDS ORDERED: LIDOCAINE/EPI 2% 1:200,00 (XYLOCAINE) 10 ML VIAL INJ ONE (08:15)
[2022-01-22] MEDS ORDERED: MINERAL OIL 30 ML TOP ONE (08:15)
[2022-01-22] MEDS ORDERED: fentaNYL INJ 100 MCG/2 ML AMP ONE (08:47)
[2022-01-22] MEDS ORDERED: fentaNYL INJ 100 MCG/2 ML AMP IVP ONE (09:00)
--- NOTE | 2022-01-22 09:29 | History & Physical-OB ---
OB - Chief Complaint & HPI Date/Time Date of Admission: Date of Admission: Jan 21, 2022 at 17:59 Date seen by a Provider: Jan 22, 2022 Time Seen by a Provider: 08:30 Chief Complaint/History OB-Reason for Admission/Chief: Induction of Labor Hx : 2 Hx Para: 1 Expected Date of Delivery: Jan 29, 2022 Gestational Age in Weeks: 39 Gestational Age in Days: 0 History of Labs O+, Ab neg, Rub Imm HIV/RPR/HepB/C NR Normal 1 hr GTT GBS neg Allergies and Home Medications Allergies Coded Allergies: latex (Verified Allergy, Unknown, Swelling, 01/22/22) Patient Home Medication List Home Medication List Reviewed: Yes Vit37/Iron/Folic Acid ([place] Chewable Tablet) 29 Mg Iron-1 Mg Tab.chew, 1 EACH PO, (Reported) Entered as Reported by: GALEN FRANKEL on 12/01/21 0156 OB - History Hx of Present Care: Yes Ultrasounds: No ultrasounds Obstetrical Complications: None Medical Complications: None Obstetrical History Hx : 2 Hx Para: 1 Number of Living Children: 1 Patient Past Medical History Anemia in Social History/Family History Recreational Drug Use: Yes (at the first part of her ) 2nd Hand Smoke Exposure: No Immunizations Influenza Vaccine Up-to-Date: Yes; Up-to-Date COVID19 Vaccine Liner Helper: Univa UD Hepatitis A: No Hepatitis B: Yes Rubella: immune RPR/VDRL: Negative GBS Status: Negative HBsAG: Negative OB - Admission Exam Physical Exam Vitals: Vital Signs 01/22/22 01/22/22 03:37 06:38 Temp 36.9 Pulse 71 Resp 18 B/P (MAP) 126/62 (83) Pulse Ox 100 O2 Delivery Room Air HEENT: NCAT Lungs: Clear Abdomen: Gravid Cervical Dilatation: 9cm Effacement: 100% Station: 0 Membranes: Intact Accelerations: Accelerations Present Decelerations: No Decelerations Short Term Variability: Present Model Maker Scale Variability: Average (6-25) Contractions on Admission: < 5 Minutes Apart Labs Laboratory Tests Test 01/21/22 18:20 01/21/22 18:50 Range/Units Urine Color YELLOW Urine Clarity CLEAR Urine pH 6.0 5-9 Urine Specific [place] >=1.030 1.016-1.022 Urine Protein TRACE H NEGATIVE Urine Glucose (UA) NEGATIVE NEGATIVE Urine Ketones NEGATIVE NEGATIVE Urine Nitrite NEGATIVE NEGATIVE Urine Bilirubin NEGATIVE NEGATIVE Urine Urobilinogen 1.0 < = 1.0 MG/DL Urine Leukocyte Esterase TRACE H NEGATIVE Urine RBC (Auto) TRACE H NEGATIVE Urine RBC 5-10 H /HPF Urine WBC 10-25 H /HPF Urine Squamous Epithelial Cells 25-50 H /HPF Urine Crystals NONE /LPF Urine Bacteria LARGE H /HPF Urine Casts NONE /LPF Urine Mucus MODERATE H /LPF Urine Culture Indicated YES White Blood Count 9.8 4.3-11.0 10^3/uL Red Blood Count 3.73 L 3.80-5.11 10^6/uL Hemoglobin 8.7 L 11.5-16.0 g/dL Hematocrit 28 L 35-52 % Mean Corpuscular Volume 76 L 80-99 fL Mean Corpuscular Hemoglobin 23 L 25-34 pg Mean Corpuscular Hemoglobin Concent 31 L 32-36 g/dL Red Cell Distribution Width 20.3 H 10.0-14.5 % Platelet Count 231 130-400 10^3/uL Mean Platelet Volume 11.7 9.0-12.2 fL Immature Granulocyte % (Auto) 0 % Neutrophils (%) (Auto) 72 42-75 % Lymphocytes (%) (Auto) 18 12-44 % Monocytes (%) (Auto) 9 0-12 % Eosinophils (%) (Auto) 1 0-10 % Basophils (%) (Auto) 0 0-10 % Neutrophils # (Auto) 7.1 1.8-7.8 10^3/uL Lymphocytes # (Auto) 1.8 1.0-4.0 10^3/uL Monocytes # (Auto) 0.9 0.0-1.0 10^3/uL Eosinophils # (Auto) 0.1 0.0-0.3 10^3/uL Basophils # (Auto) 0.0 0.0-0.1 10^3/uL Immature Granulocyte # (Auto) 0.0 0.0-0.1 10^3/uL OB - Assessment/Plan/Diagnosis Assessment Assessment: induction of labor Admission Dx third trimester 39 week gestation Anemia in Admission Status: Inpatient Order (span 2 midnights) Reason for Inpatient Admission: Labor Plan Other Plan 21 yo @ 39.0 wga here for elective IOL Plan - Patient 8 this AM - AROM clear at delivery - Expectant vaginal delivery MARLIN WATTS MD Jan 22, 2022 09:29
--- NOTE | 2022-01-22 09:38 | OB Labor & Delivery Record ---
Vag Delivery Note Vag Delivery Note Date of Delivery: 01/22/22 Preoperative Diagnosis: Yenifer Hui is a (21 /Para 2/1 ,Gestational Age (wks)39.0 with here for elective IOL Postoperative Diagnosis: Same Surgeon: MARLIN WATTS MD Supervisor Wet Pour: None Anesthesia: Natural Delivery Type: 0840 Findings: Viable male , apgars 8/9, weight 8#3, 3725 grams Lacerations: 2nd degree laceration with left labial laceration Intact placenta with 3 vessel cord. Nuchal cord x1, body cord or shoulder dystocia Estimated Blood Loss: 125 ml Complications: None Condition: Stable Description of Procedure: The patient is a 21 year old female who presented for elective IOL. She was admitted and informed consent was obtained. Her labor course was unremarkable. She progressed to complete dilatation and began to push. She was then set up for delivery. The infant's head was delivered with mighty vac after one pull and one contraction in the MAREN position. The shoulders and remainder of the 's body were then delivered without difficulty after reduction of nuchal cord x1 after delivery of the head. Upon delivery, the head was held below the level of the perineum and the mouth and nares were bulb suctioned. The cord was doubly clamped and cut by FOB after 2 min delay and the was handed off to the pediatric staff. An intact placenta with 3-vessel cord delivered via Junito and there was found to be minimal bleeding.~ Vigorous fundal massage was performed and the fundus was found to be firm. IV oxytocin was given. Examination of the vagina and perineum revealed a 2nd degree laceration and left labial laceration repaired in the usual fashion with 3-0 vicryl suture. Following the repair, sponge, instrument and needle counts were correct. Mom and baby were both in stable condition in the labor suite. Vitals - Labs Vital Signs - I&O Vital Signs Date Time Temp Pulse Resp B/P (MAP) Pulse Ox O2 Delivery O2 Flow Rate FiO2 01/22/22 06:38 71 18 126/62 (83) Room Air 01/22/22 06:24 86 18 132/67 (88) Room Air 01/22/22 06:10 80 18 132/66 (88) Room Air 01/22/22 05:07 90 18 140/68 (92) Room Air 01/22/22 04:56 86 18 138/65 (89) Room Air 01/22/22 04:08 83 18 134/81 (98) Room Air 01/22/22 03:37 36.9 78 18 132/68 (89) 100 Room Air 01/22/22 03:22 80 18 131/64 (86) Room Air 01/22/22 02:37 80 18 120/55 (76) Room Air 01/22/22 02:07 84 18 117/61 (79) Room Air 01/22/22 01:36 78 18 117/53 (74) Room Air 01/22/22 01:08 85 18 133/63 (86) Room Air 01/22/22 00:38 87 18 139/81 (100) Room Air 01/22/22 00:08 36.5 88 18 135/69 (91) 99 Room Air 01/21/22 23:37 93 18 140/89 (106) Room Air 01/21/22 22:08 100 18 132/73 (92) Room Air 01/21/22 21:39 103 18 125/70 (88) Room Air 01/21/22 21:08 105 18 124/68 (86) Room Air 01/21/22 20:37 104 18 132/58 (82) Room Air 01/21/22 20:07 96 18 124/72 (89) Room Air 01/21/22 19:40 36.6 98 Room Air 01/21/22 18:22 36.9 115 18 99 Room Air I & O 01/22/22 07:00 Intake Total 1000 ml Balance 1000 ml Labs Laboratory Tests 01/21/22 18:20: Urine Color YELLOW, Urine Clarity CLEAR, Urine pH 6.0, Urine Specific [place] >=1.030, Urine Protein TRACEH, Urine Glucose (UA) NEGATIVE, Urine Ketones NEGATIVE, Urine Nitrite NEGATIVE, Urine Bilirubin NEGATIVE, Urine Urobilinogen 1.0, Urine Leukocyte Esterase TRACEH, Urine RBC (Auto) TRACEH, Urine RBC 5-10H, Urine WBC 10-25H, Urine Squamous Epithelial Cells 25-50H, Urine Crystals NONE, Urine Bacteria LARGEH, Urine Casts NONE, Urine Mucus MODERATEH, Urine Culture Indicated YES 01/21/22 18:50: White Blood Count 9.8, Red Blood Count 3.73L, Hemoglobin 8.7L, Hematocrit 28L, Mean Corpuscular Volume 76L, Mean Corpuscular Hemoglobin 23L, Mean Corpuscular Hemoglobin Concent 31L, Red Cell Distribution Width 20.3H, Platelet Count 231, Mean Platelet Volume 11.7, Immature Granulocyte % (Auto) 0, Neutrophils (%) (Auto) 72, Lymphocytes (%) (Auto) 18, Monocytes (%) (Auto) 9, Eosinophils (%) (Auto) 1, Basophils (%) (Auto) 0, Neutrophils # (Auto) 7.1, Lymphocytes # (Auto) 1.8, Monocytes # (Auto) 0.9, Eosinophils # (Auto) 0.1, Basophils # (Auto) 0.0, Immature Granulocyte # (Auto) 0.0 MARLIN WATTS MD Jan 22, 2022 09:38
[2022-01-22] MEDS ORDERED: TETANUS,DIPTH,PERTUSS P/F (BOOSTRIX) 0.5 ML VIAL IM ONE (09:45)
[2022-01-22] MEDS ORDERED: OXYTOCIN PRE-MIX DRIP 500 ML IV SCH (09:45)
[2022-01-22] MEDS ORDERED: BENZOCAINE/MENTHOL (DERMOPLAST) 56 ML CAN TP PRN (09:45)
[2022-01-22] MEDS ORDERED: MEASLES,MUMPS,RUBELLA 1 EA INJ SQ ONE (09:45)
[2022-01-22] MEDS ORDERED: MINERAL OIL 30 ML UDC TOP PRN (12:30)
[2022-01-22] MEDS: ACETAMINOPHEN 500 MG TAB (TYLENOL) PO SCH ×2 (12:47→18:38)
[2022-01-22] MEDS: WITCH HAZEL(TUCKS) 40 EA JAR TOP PRN (12:47)
[2022-01-22] MEDS: IBUPROFEN 600 MG (MOTRIN) TAB PO SCH ×2 (12:47→18:38)
[2022-01-22] MEDS ORDERED: CATHETER FLUSH 10 ML SYR IV SCH (14:00)
[2022-01-22] MEDS: DOCUSATE SODIUM 100 MG (COLACE) CAP PO SCH (21:09)
[2022-01-23 00:31] VITALS: BP 111/53
[2022-01-23] MEDS: IBUPROFEN 600 MG (MOTRIN) TAB PO SCH ×3 (00:31→12:02)
[2022-01-23] MEDS: ACETAMINOPHEN 500 MG TAB (TYLENOL) PO SCH ×2 (00:31→06:19)
[2022-01-23 01:20] VITALS: BP 111/53
[2022-01-23 04:20] VITALS: BP 106/51
[2022-01-23 05:33] LABS: BASOPHILS % (AUTO) 0 % (0-10); EOSINOPHILS # (AUTO) 0.1 10^3/uL (0.0-0.3); EOSINOPHILS % (AUTO) 1 % (0-10); HEMATOCRIT 28 % (35-52); HEMOGLOBIN 8.2 g/dL (11.5-16.0); LYMPHOCYTES # (AUTO) 1.9 10^3/uL (1.0-4.0); LYMPHOCYTES % (AUTO) 21 % (12-44); MEAN CORPUSCULAR HEMOGLOBIN 23 pg (25-34); MEAN CORPUSCULAR HGB CONC 30 g/dL (32-36); MEAN CORPUSCULAR VOLUME 78 fL (80-99); MEAN PLATELET VOLUME 12.3 fL (9.0-12.2); MONOCYTES # (AUTO) 0.8 10^3/uL (0.0-1.0); MONOCYTES % (AUTO) 8 % (0-12); NEUTROPHILS # (AUTO) 6.5 10^3/uL (1.8-7.8); NEUTROPHILS % (AUTO) 70 % (42-75); PLATELET COUNT 193 10^3/uL (130-400); WHITE BLOOD COUNT 9.4 10^3/uL (4.3-11.0)
[2022-01-23 08:15] VITALS: BP 122/57
[2022-01-23] MEDS: DOCUSATE SODIUM 100 MG (COLACE) CAP PO SCH (08:20)
[2022-01-23] MEDS ORDERED: DOCU100C37 PO (08:25)
[2022-01-23] MEDS ORDERED: FERR325T24 PO (08:25)
--- NOTE | 2022-01-23 08:26 | Discharge Inst-Women's Service ---
Discharge Inst-Women's Serv Depart Medication/Instructions New, Converted or Re-Newed RX: Transmitted to Pharmacy ([facility]) Problems Reviewed?: Yes Consults/Follow Up Additional Follow Up: Yes (Dr Singh in 6 weeks) Activity Driving Instructions: No Driving for 1 Week Nothing Inside Vagina: No Luck (for 6 weeks) Diet Discharge Diet: Regular Diet Return to The Hospital For: as below Symptoms to Report to : Bleeding Excessive, Fever Over 101 Degrees F, Vaginal Discharge Foul For Any Problems or Questions: Contact Your Physician OSWALDO KIRAN MD Jan 23, 2022 08:26
--- NOTE | 2022-01-23 08:29 | Discharge Summary ---
Diagnosis/Chief Complaint Date of Admission Jan 21, 2022 at 17:59 Date of Discharge January 23, 2022 Admission Diagnosis Admission Diagnosis 1. IUP at 39 weeks Discharge Diagnosis 1. IUP at 39 weeks Chief Complaint/HPI Chief Complaint/HPI 21 yo G2T2L2 who initially presented to women[facility] services on January 21 Discharge Summary-OBS Procedures 1. Suction assist vertex vaginal delivery Discharge Physical Examination Allergies: Coded Allergies: latex (Verified Allergy, Unknown, Swelling, 01/22/22) Vitals & I&Os Intake and Output 01/23/22 00:00 Intake Total 500 ml Balance 500 ml Vital Sign - Last 12Hours Date Time Temp Pulse Resp B/P (MAP) Pulse Ox O2 Delivery O2 Flow Rate FiO2 01/23/22 04:20 36.5 68 18 106/51 (69) 99 Room Air 01/22/22 08:40 10.00 General Appearance: No Acute Distress Respiratory: Clear to Auscultation Cardiovascular: Regular Rate Abdominal: Soft Hospital Course Labs Laboratory Tests 01/23/22 05:20: White Blood Count 9.4, Red Blood Count 3.51L, Hemoglobin 8.2L, Hematocrit 28L, Mean Corpuscular Volume 78L, Mean Corpuscular Hemoglobin 23L, Mean Corpuscular Hemoglobin Concent 30L, Red Cell Distribution Width 20.5H, Platelet Count 193, Mean Platelet Volume 12.3H, Immature Granulocyte % (Auto) 0, Neutrophils (%) (Auto) 70, Lymphocytes (%) (Auto) 21, Monocytes (%) (Auto) 8, Eosinophils (%) (Auto) 1, Basophils (%) (Auto) 0, Neutrophils # (Auto) 6.5, Lymphocytes # (Auto) 1.9, Monocytes # (Auto) 0.8, Eosinophils # (Auto) 0.1, Basophils # (Auto) 0.0, Immature Granulocyte # (Auto) 0.0 Microbiology 01/21/22 Urine Culture - Final, Complete Gram Pos Mixed Bacterial Ruth Discharge Instructions to patient/family Please see electronic discharge instructions given to patient. Discharge Medications Reviewed and agree with Discharge Medication list on patient's Discharge Instruction sheet OSWALDO KIRAN MD Jan 23, 2022 08:29
[2022-01-23] MEDS ORDERED: IRON SUCROSE 200 MG/10 ML (VENOFER) VIAL IV ONE (09:00)
[2022-01-23] MEDS ORDERED: FERROUS SULF 325 MG (IRON) TAB PO SCH (09:00)
[2022-01-23] MEDS: WITCH HAZEL(TUCKS) 40 EA JAR TOP PRN (10:04)
[2022-01-23 11:05] VITALS: BP 117/59
== END 2022-01-23 13:00 | disposition home or self-care (01) | DRG 807 ==
LOC: LDRP 17:59
PROVIDERS: ADMIT Family Medicine; ATTEND Family Medicine
PROC: 10E0XZZ Delivery of Products of Conception, External Approach (ICD-10-PCS; principal; 2022-01-22)
PROC: 0KQM0ZZ Repair Perineum Muscle, Open Approach (ICD-10-PCS; 2022-01-22)
PROC: 10907ZC Drainage of Amniotic Fluid, Therapeutic from Products of Conception, Via Natural or Artificial Opening (ICD-10-PCS; 2022-01-22)
PROC: 3E033VJ Introduction of Other Hormone into Peripheral Vein, Percutaneous Approach (ICD-10-PCS; 2022-01-22)
DX: O99.02 Anemia complicating childbirth (principal); Z37.0 Single live birth; D64.9 Anemia, unspecified; Z3A.39 39 weeks gestation of pregnancy; O70.1 Second degree perineal laceration during delivery; O69.81X0 Labor and delivery complicated by cord around neck, without compression, not applicable or unspecified; O66.0 Obstructed labor due to shoulder dystocia
CPT/HCPCS: 36415; 81000; 85025; 86850; 86900; 86901; 87088

== ENCOUNTER 2022-03-20 21:34 | Emergency (ER) | payer OTHER, MEDICAID ==
[~2022-03-20] VITALS: Ht 64 cm; Wt 86.3 kg
[~2022-03-20 21:34] MED LIST changes: +DOCU100C37 PO; +FERR325T24 PO
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
--- NOTE | 2022-03-20 22:46 | Diagnostic Imaging Report ---
EXAM: Cervical spine 3 views or less. INDICATION: Neck pain. COMPARISON: None. FINDINGS: Normal alignment. Vertebral body heights are preserved. No fracture. No substantial spondylotic change. Normal prevertebral soft tissues. IMPRESSION: Negative cervical spine radiographs. Dictated by: Dictated on workstation # [id number]
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
--- NOTE | 2022-03-20 22:49 | Diagnostic Imaging Report ---
EXAM: Lumbar spine - 2-3 views. INDICATION: Low back pain. COMPARISON: None. FINDINGS: Mild left apex lumbar curvature. Vertebral body heights preserved. No fracture. No substantial spondylotic change. Visualized pelvis is intact. IMPRESSION: Mild lumbar scoliosis. No acute radiographic finding. Dictated by: Dictated on workstation # [id number]
[2022-03-20] MEDS ORDERED: CYCLOBENZAPRINE 10 MG (FLEXERIL) TAB PO ONE (23:45)
[2022-03-20] MEDS ORDERED: CYCL10TA25 PO (23:49)
[2022-03-20 23:53] VITALS: BP 112/80
== END 2022-03-20 23:53 | disposition home or self-care (01) ==
LOC: EDUNIT# 21:34 → ER 21:37
DX: M54.2 Cervicalgia (principal); M54.50 Low back pain, unspecified; M54.6 Pain in thoracic spine; Z91.040 Latex allergy status; V43.92XA Unspecified car occupant injured in collision with other type car in traffic accident, initial encounter; Y92.481 Parking lot as the place of occurrence of the external cause
CPT/HCPCS: 72040; 72070; 72100

== ENCOUNTER 2022-08-03 22:04 | Emergency (ER) | payer MEDICAID ==
[~2022-08-03 22:04] MED LIST changes: +CYCL10TA25 PO
[2022-08-03] MEDS ORDERED: NS IV 1000 ML 1,000 ML IV STA (22:15)
[2022-08-03] MEDS ORDERED: ONDANSETRON 4 MG/2 ML (SDV) Z0FRAN IVP STA (22:15)
[2022-08-03 22:24] LABS: BASOPHILS # (AUTO) 0.1 10^3/uL (0.0-0.1); BASOPHILS % (AUTO) 0 % (0-10); EOSINOPHILS # (AUTO) 0.5 10^3/uL (0.0-0.3); EOSINOPHILS % (AUTO) 4 % (0-10); HEMATOCRIT 36 % (35-52); LYMPHOCYTES # (AUTO) 2.3 10^3/uL (1.0-4.0); LYMPHOCYTES % (AUTO) 20 % (12-44); MEAN CORPUSCULAR HEMOGLOBIN 27 pg (25-34); MEAN CORPUSCULAR HGB CONC 33 g/dL (32-36); MEAN CORPUSCULAR VOLUME 81 fL (80-99); MEAN PLATELET VOLUME 10.4 fL (9.0-12.2); MONOCYTES % (AUTO) 9 % (0-12); NEUTROPHILS # (AUTO) 7.7 10^3/uL (1.8-7.8); NEUTROPHILS % (AUTO) 66 % (42-75); PLATELET COUNT 316 10^3/uL (130-400); WHITE BLOOD COUNT 11.6 10^3/uL (4.3-11.0)
--- NOTE | 2022-08-03 22:35 | ED Cough/URI ---
General Stated Complaint: TROUBLE BREATHING, CHEST PAIN W BREATHING, SOB Source: patient History of Present Illness Date Seen by Provider: Aug 03, 2022 Time Seen by Provider: 22:08 Initial Comments 21-year-old female presenting with complaints of cough with shortness of breath and chest pain with deep breaths. She started feeling sick yesterday and has had subjective fever and chills. She also has had some vomiting and diarrhea. She has no known ill contacts. She does not take any chronic prescription medicines and has no allergies to medications but states that she has a reaction to latex. She was concerned because she was having tightness and pain in the chest with deep breaths and getting dizzy with standing and moving around. She did try taking qtke-psd-ijmahfs NyQuil and DayQuil with out any significant improvement. Timing/Duration: yesterday Severity/Quality: moderate, dry cough Prior Episodes/Possible Cause: no prior episodes Modifying Factors: Worse With Activity Associated Symptoms: chest pain/soreness (Worse with deep breath), cough, dizziness, fever/chills (Subjective), headache, lightheadedness, muscle aches, nasal congestion, nasal drainage, shortness of breath, sore throat, wheezing Allergies and Home Medications Allergies Coded Allergies: latex (Verified Allergy, Unknown, Swelling, 01/22/22) Patient Home Medication List Home Medication List Reviewed: Yes Cyclobenzaprine HCl (Cyclobenzaprine HCl) 10 Mg Tablet, 10 MG PO Q8H PRN for SPASMS Prescribed by: PALOMA BLUE on 03/20/22 2349 Docusate Sodium (Docusate Sodium) 100 Mg Capsule, 100 MG PO BID Prescribed by: OSWALDO KIRAN on 01/23/22 08 Ferrous Sulfate (Ferosul) 325 Mg (65 Mg Iron) Tablet, 325 MG PO DAILY Prescribed by: OSWALDO KIRAN on 01/23/22 08 Ondansetron (Ondansetron Odt) 4 Mg Tab.rapdis, 4 MG PO Q6H PRN for NAUSEA/VOMITING Prescribed by: CATHY TAN on 08/03/22 233 Prednisone (Prednisone) 20 Mg Tab, 40 MG PO DAILY Prescribed by: CATHY TAN on 08/03/22 233 Vit37/Iron/Folic Acid (Prenata Chewable Tablet) 29 Mg Iron-1 Mg Tab.chew, 1 EACH PO, (Reported) Entered as Reported by: GALEN FRANKEL on 12/01/21 0156 Review of Systems Review of Systems Constitutional: see HPI EENTM: nose congestion, throat pain Respiratory: see HPI, cough Cardiovascular: see HPI Gastrointestinal: see HPI, diarrhea, nausea, vomiting Genitourinary: No dysuria Musculoskeletal: muscle pain (Generalized muscle pain) Skin: No rash Psychiatric/Neurological: Headache Past Kgcoutq-Bvjfcp-Bimnvx Hx Patient Social History Tobacco Use?: Yes Tobacco type used: Cigarettes Smoking Status: Current Everyday Smoker Seasonal Allergies Seasonal Allergies: No Past Medical History Surgery/Hospitalization HX: DENIES. Surgeries: No Respiratory: No Cardiac: Yes Hypertension Neurological: No Genitourinary: No Gastrointestinal: No Musculoskeletal: No Endocrine: No HEENT: No Cancer: No Psychosocial: No Integumentary: No Blood Disorders: No Physical Exam Vital Signs - First Documented 08/03/22 22:08 Temp 37.1 Pulse 113 Resp 18 B/P (MAP) 139/98 (112) Pulse Ox 100 O2 Delivery Room Air Capillary Refill : Height: '" Weight: lbs. oz. kg; 210.00 BMI Method: General Appearance: WD/WN, mild distress (Appears to not feel well) HEENT: PERRL/EOMI, pharynx normal Neck: non-tender, full range of motion, supple, normal inspection Respiratory: No chest non-tender (Tender to palpation); no respiratory distress, no accessory muscle use, decreased breath sounds Cardiovascular: normal peripheral pulses, tachycardia Gastrointestinal: normal bowel sounds, non tender, soft, no pulsatile mass Extremities: normal range of motion, non-tender, normal capillary refill Neurologic/Psychiatric: alert, oriented x 3 Skin: normal color, warm/dry Progress/Results/Core Measures Suspected Sepsis SIRS Temperature: Pulse: Respiratory Rate: Laboratory Tests 08/03/22 22:20: White Blood Count 11.6H Blood Pressure / Mean: Laboratory Tests 08/03/22 22:20: Creatinine 0.59L, Platelet Count 316, Total Bilirubin 0.2 Results/Orders Lab Results Laboratory Tests Test 08/03/22 22:16 08/03/22 22:20 08/03/22 22:40 Range/Units Influenza Type A (RT-PCR) Not Detected Not Detecte Influenza Type B (RT-PCR) Not Detected Not Detecte SARS-CoV-2 RNA (RT-PCR) Not Detected Not Detecte White Blood Count 11.6 H 4.3-11.0 10^3/uL Red Blood Count 4.43 3.80-5.11 10^6/uL Hemoglobin 12.0 11.5-16.0 g/dL Hematocrit 36 35-52 % Mean Corpuscular Volume 81 80-99 fL Mean Corpuscular Hemoglobin 27 25-34 pg Mean Corpuscular Hemoglobin Concent 33 32-36 g/dL Red Cell Distribution Width 13.8 10.0-14.5 % Platelet Count 316 130-400 10^3/uL Mean Platelet Volume 10.4 9.0-12.2 fL Immature Granulocyte % (Auto) 0 % Neutrophils (%) (Auto) 66 42-75 % Lymphocytes (%) (Auto) 20 12-44 % Monocytes (%) (Auto) 9 0-12 % Eosinophils (%) (Auto) 4 0-10 % Basophils (%) (Auto) 0 0-10 % Neutrophils # (Auto) 7.7 1.8-7.8 10^3/uL Lymphocytes # (Auto) 2.3 1.0-4.0 10^3/uL Monocytes # (Auto) 1.0 0.0-1.0 10^3/uL Eosinophils # (Auto) 0.5 H 0.0-0.3 10^3/uL Basophils # (Auto) 0.1 0.0-0.1 10^3/uL Immature Granulocyte # (Auto) 0.0 0.0-0.1 10^3/uL Sodium Level 140 135-145 MMOL/L Potassium Level 3.6 3.6-5.0 MMOL/L Chloride Level 100 98-107 MMOL/L Carbon Dioxide Level 26 21-32 MMOL/L Anion Gap 14 5-14 MMOL/L Blood Urea Nitrogen 13 7-18 MG/DL Creatinine 0.59 L 0.60-1.30 MG/DL Estimat Glomerular Filtration Rate 131 BUN/Creatinine Ratio 22 Glucose Level 95 70-105 MG/DL Calcium Level 9.8 8.5-10.1 MG/DL Corrected Calcium 9.4 8.5-10.1 MG/DL Total Bilirubin 0.2 0.1-1.0 MG/DL Aspartate Amino Transf (AST/SGOT) 25 5-34 U/L Alanine Aminotransferase (ALT/SGPT) 40 0-55 U/L Alkaline Phosphatase 92 40-136 U/L C-Reactive Protein 4.82 H <0.50 MG/DL Total Protein 7.7 6.4-8.2 GM/DL Albumin 4.5 3.2-4.5 GM/DL Serum Test, Qualitative NEGATIVE NEGATIVE Urine Color YELLOW Urine Clarity SL CLOUDY Urine pH 7.0 5-9 Urine Specific [place] 1.020 1.016-1.022 Urine Protein NEGATIVE NEGATIVE Urine Glucose (UA) NEGATIVE NEGATIVE Urine Ketones NEGATIVE NEGATIVE Urine Nitrite NEGATIVE NEGATIVE Urine Bilirubin NEGATIVE NEGATIVE Urine Urobilinogen 0.2 < = 1.0 MG/DL Urine Leukocyte Esterase NEGATIVE NEGATIVE Urine RBC (Auto) NEGATIVE NEGATIVE Urine RBC NONE /HPF Urine WBC 0-2 /HPF Urine Squamous Epithelial Cells 0-2 /HPF Urine Crystals PRESENT H /LPF Urine Amorphous Sediment FEW BREEZY PHOSPHATE H /LPF Urine Bacteria MODERATE H /HPF Urine Casts NONE /LPF Urine Mucus NEGATIVE /LPF Urine Culture Indicated NO My Orders Orders - CATHY TAN MD Cbc With Automated Diff (08/03/22 22:15) Comprehensive Metabolic Panel (08/03/22 22:15) Chest 1 View Ap/Pa Only (08/03/22 22:15) Ekg Tracing (08/03/22 22:15) O2 (08/03/22 22:15) Ed Iv/Invasive Line Start (08/03/22 22:15) Monitor-Rhythm Ecg Trace Only (08/03/22 22:15) Crp Fs (08/03/22 22:15) Ns Iv 1000 Ml (Sodium Chloride 0.9%) (08/03/22 22:15) Dexamethasone Injection (Decadron Inje (08/03/22 22:15) Ondansetron Injection (Zofran Injectio (08/03/22 22:15) Hcg,Qualitative Serum (08/03/22 22:15) Ua Culture If Indicated (08/03/22 22:15) Covid 19 Inhouse Test (08/03/22 22:15) Influenza A And B By Pcr (08/03/22 22:15) Isolation Central Supply Req (08/03/22 22:15) Rx-Albuterol Inhaler (Rx-Ventolin Hfa In (2/14/23 23:20) Nursing Communication (Order) (08/03/22 23:20) Vital Signs/I&O 08/03/22 08/03/22 22:08 23:35 Temp 37.1 Pulse 113 98 Resp 18 18 B/P (MAP) 139/98 (112) 124/79 Pulse Ox 100 100 O2 Delivery Room Air Room Air 08/04/22 00:00 Intake Total 1000 ml Balance 1000 ml Capillary Refill : Progress Note #1: Progress Note Potential diagnosis of COVID, influenza, upper respiratory infection, sinusitis, gastroenteritis, pneumonia. Obtain peripheral IV access and send blood for complete blood count, comprehensive metabolic profile, lipase. Obtain urinalysis to check for hydration and signs of infection. Send blood work for qualitative hCG level. She states her last menstrual period was towards the end of June. She has an oxygen saturation of 100% on room air. We will obtain a chest x-ray to look for signs of pneumonia or effusion. Normal saline 1 L IV fluid bolus for hydration. Nasal swab to check for influenza and COVID. Progress Note #2: Time: 22:48 Progress Note Complete blood count shows white blood cells at upper limit of normal at 11.6 thousand. Her swab check for COVID, influenza was negative for both. And my review of her 1 view chest x-ray she had no acute infiltrate or effusions. Her electrocardiogram was showing tachycardia but no acute ischemic changes. Progress Note #3: Time: 22:53 Progress Note Comprehensive metabolic profile shows negative test and elevated CRP to 4.82. Otherwise her renal function and hepatic function with basic electrolytes have all looked okay. Awaiting urinalysis results. Progress Note #4: Progress Note Urinalysis slightly concentrated with elevated specific gravity of 1.020. There is no signs of nitrites, leukocyte esterase, bacteria to indicate an infection. Encourage patient to drink more fluids and stay better hydrated. Use the inhaler with spacer to help with cough and congestion. Use a steroid burst to help with inflammation as well as cough and drainage. May continue with vaqs-qmd-ikcvggt DayQuil and NyQuil as well as add in Mucinex toqx-sjr-vdohjnk 600 to 1200 mg twice a day for the next 5 to 7 days. Encourage hydration to help thin out mucus and congestion. Sent with a prescription for 5-day burst of prednisone 40 mg daily to help with cough and congestion. Zofran ODT 4 mg every 6 hours as needed for nausea and vomiting for the next 3 days. Check back with clinic if not improving or having worsening symptoms. ECG Initial ECG Impression Date: Aug 03, 2022 Initial ECG Impression Time: 22:14 Initial ECG Rate: 111 Initial ECG Rhythm: S.Tach Initial ECG Comparisson: No Previous ECG Available Comment My interpretation and review her electrocardiogram shows sinus tachycardia with a heart rate of 111 bpm. RI interval [address] elevation. QT interval 291 ms with a QTc interval 356 ms. She has no prior tracing available for comparison. Diagnostic Imaging Diagonstic Imaging: Xray Plain Films/CT/US/NM/MRI: chest Comments My personal review and interpretation of her 1 view chest x-ray is that she does not have any acute infiltrate or effusion. Reviewed: Reviewed by Me Departure Impression Primary Impression: Upper respiratory infection with cough and congestion Additional Impressions: Dehydration Viral syndrome Disposition: HOME, SELF-CARE Condition: Stable Departure-Patient Inst. Decision time for Depature: 23:22 Referrals: YEISON SWEET MD (PCP/Family) Primary Care Physician Patient Instructions: Cough, Adult ED, Dehydration, Adult ED, How to Use a Metered Dose Inhaler ED, How to Use a Spacer, Upper Respiratory Infection ED, Viral Syndrome (DC) Add. Discharge Instructions: Try to stay well-hydrated and drink plenty of fluids. Use a humidifier or vaporizer at the bedside while sleeping to help with congestion and cough. Use the inhaler with spacer to help with cough. You would take 2 puffs with the inhaler through the spacer every 6 hours as needed for cough and shortness of breath. You could continue with the DayQuil and NyQuil medicine to help with your symptoms. Take Mucinex to help thin out and loosen congestion and cough. Take the oral steroids to help with cough and inflammation. Check back with the clinic if not improving or having worsening symptoms. Scripts Ondansetron (Ondansetron Odt) 4 Mg Tab.rapdis 4 MG PO Q6H PRN for NAUSEA/VOMITING for 3 Days, #12 TAB 0 Refills Prov: CATHY TAN MD 08/03/22 Prednisone (Prednisone) 20 Mg Tab 40 MG PO DAILY for cough for 5 Days, #10 TAB 0 Refills Prov: CATHY TAN MD 08/03/22 CATHY TAN MD Aug 03, 2022 22:35
[2022-08-03 22:46] LABS: BILIRUBIN,URINE NEGATIVE (NEGATIVE); CLARITY,URINE SL CLOUDY; COLOR,URINE YELLOW; GLUCOSE, URINE (UA) NEGATIVE (NEGATIVE); KETONES,URINE NEGATIVE (NEGATIVE); LEUKOCYTE ESTERASE ,URINE NEGATIVE (NEGATIVE); NITRITE,URINE NEGATIVE (NEGATIVE); PROTEIN,URINE NEGATIVE (NEGATIVE)
[2022-08-03 22:47] LABS: POTASSIUM 3.6 MMOL/L (3.6-5.0)
[2022-08-03 22:48] LABS: ALBUMIN 4.5 GM/DL (3.2-4.5); BILIRUBIN,TOTAL 0.2 MG/DL (0.1-1.0); CALCIUM 9.8 MG/DL (8.5-10.1); CREATININE SERUM 0.59 MG/DL (0.60-1.30); TOTAL PROTEIN 7.7 GM/DL (6.4-8.2)
[2022-08-03 22:53] LABS: BACTERIA,URINE MODERATE /HPF; SQUAMOUS EPITHELIAL CELL,UR 0-2 /HPF; WBC,URINE 0-2 /HPF
[2022-08-03 22:54] LABS: AMORPHOUS SEDIMENT,UR FEW AMOR PHOSPHATE /LPF
[2022-08-03] MEDS ORDERED: RX-ALBUTEROL INHALER 8.5 GM HFA (PROAIR) IH STA (23:20)
[2022-08-03 23:35] VITALS: BP 124/79
[2022-08-03] MEDS ORDERED: PRD20T PO (23:36)
[2022-08-03] MEDS ORDERED: ONDA4TAB11 PO (23:36)
--- NOTE | 2022-08-04 06:59 | Diagnostic Imaging Report ---
Indication: Cough and shortness of breath Frontal chest obtained at 1040 p.m. Heart and mediastinal silhouette are normal in appearance. The lungs are clear. There is no pneumothorax or pleural fluid. IMPRESSION: Negative chest. Dictated by: Dictated on workstation # [id number]
== END 2022-08-03 23:40 | disposition home or self-care (01) ==
LOC: EDUNIT# 22:04 → ER FS 22:07
DX: J06.9 Acute upper respiratory infection, unspecified (principal); B34.9 Viral infection, unspecified; E86.0 Dehydration; F17.210 Nicotine dependence, cigarettes, uncomplicated; Z20.822 Contact with and (suspected) exposure to COVID-19; Z28.310 Unvaccinated for COVID-19
CPT/HCPCS: 36415; 71045; 80053; 81000; 84703; 85025; 86141; 87636; 93005; 93041

== ENCOUNTER 2022-11-21 16:20 | Emergency (ER) | payer MEDICAID ==
[~2022-11-21] VITALS: Ht 167.7 cm; Wt 98.5 kg
[~2022-11-21 16:20] MED LIST changes: +ONDA4TAB11 PO; +PRD20T PO
--- NOTE | 2022-11-21 16:41 | ED General ---
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 History of Present Illness Date Seen by Provider: Nov 21, 2022 Time Seen by Provider: 16:31 Initial Comments 22-year-old female with PMH of migraine, is here with complaints of having migraines for the past 1 week, and started her menstrual period today morning with abdominal cramping. Patient has been taking Excedrin at home for her headache which has not been helping much. Patient wants something for migraine headache. Patient was in the yard and had to sit down because she felt like fainting approximately 30 minutes prior to coming to the ER. Patient has not been drinking much water. Patient also states that for her last 2 pregnancies the urine test came back negative until she was 3 months into the . Patient has associated photophobia. Denies nausea and vomiting, diarrhea, fever and chills, chest pain or palpitations. Allergies and Home Medications Allergies Coded Allergies: latex (Verified Allergy, Unknown, Swelling, 01/22/22) Patient Home Medication List Home Medication List Reviewed: Yes Cyclobenzaprine HCl (Cyclobenzaprine HCl) 10 Mg Tablet, 10 MG PO Q8H PRN for S PASMS Prescribed by: PALOMA BLUE on 03/20/22 234 Docusate Sodium (Docusate Sodium) 100 Mg Capsule, 100 MG PO BID Prescribed by: OSWALDO KIRAN on 01/23/22 0825 Ferrous Sulfate (Ferosul) 325 Mg (65 Mg Iron) Tablet, 325 MG PO DAILY Prescribed by: OSWALDO KIRAN on 01/23/22 0825 Ondansetron (Ondansetron Odt) 4 Mg Tab.rapdis, 4 MG PO Q6H PRN for NAUSEA/VOMITING Prescribed by: CATHY TAN on 08/03/222335 Prednisone (Prednisone) 20 Mg Tab, 40 MG PO DAILY Prescribed by: CATHY TAN on 08/03/22 233 Vit37/Iron/Folic Acid (Prenata Chewable Tablet) 29 Mg Iron-1 Mg Tab.chew, 1 EACH PO, (Reported) Entered as Reported by: GALEN FRANKEL on 12/01/21 0156 Review of Systems Review of Systems Constitutional: no symptoms reported EENTM: no symptoms reported Respiratory: no symptoms reported Cardiovascular: no symptoms reported Gastrointestinal: no symptoms reported Genitourinary: no symptoms reported : No Musculoskeletal: no symptoms reported Skin: no symptoms reported Psychiatric/Neurological: Headache Hematologic/Lymphatic: No Symptoms Reported Immunological/Allergic: no symptoms reported Past Hkapmvq-Cknpzm-Rwnbpt Hx Patient Social History Tobacco Use?: No Smoking Status: Never a Smoker Smokeless Tobacco Frequency: Never a User Use of E-Cig and/or Vaping dev: No Use of E-Cig and/or Vaping Wai: Never a User Substance use?: No Alcohol Use?: No Pt feels they are or have been: No Seasonal Allergies Seasonal Allergies: No Past Medical History Surgery/Hospitalization HX: DENIES. Surgeries: No Respiratory: No Cardiac: Yes Hypertension Neurological: No Genitourinary: No Gastrointestinal: No Musculoskeletal: No Endocrine: No HEENT: No Cancer: No Psychosocial: No Integumentary: No Blood Disorders: No Physical Exam Vital Signs Vital Signs - First Documented 11/21/22 16:20 Temp 36.7 Pulse 104 Resp 20 B/P (MAP) 130/108 (115) Capillary Refill : Less Than 3 Seconds Height, Weight, BMI Height: '" Weight: lbs. oz. 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 Skin: Normal Color Progress/Results/Core Measures Suspected Sepsis SIRS Temperature: Pulse: 104 Respiratory Rate: 20 Laboratory Tests 11/21/22 16:57: White Blood Count 10.7 Blood Pressure 130 /108 Mean: 115 Laboratory Tests 11/21/22 16:57: Platelet Count 349 Results/Orders Lab Results Laboratory Tests Test 11/21/22 16:20 11/21/22 16:57 Range/Units Urine Color YELLOW Urine Clarity CLEAR Urine pH 6.0 5-9 Urine Specific [place] 1.015 L 1.016-1.022 Urine Protein NEGATIVE NEGATIVE Urine Glucose (UA) NEGATIVE NEGATIVE Urine Ketones NEGATIVE NEGATIVE Urine Nitrite NEGATIVE NEGATIVE Urine Bilirubin NEGATIVE NEGATIVE Urine Urobilinogen 0.2 < = 1.0 MG/DL Urine Leukocyte Esterase NEGATIVE NEGATIVE Urine RBC (Auto) 3+ H NEGATIVE Urine RBC 5-10 H /HPF Urine WBC NONE /HPF Urine Squamous Epithelial Cells 2-5 /HPF Urine Crystals NONE /LPF Urine Bacteria NEGATIVE /HPF Urine Casts NONE /LPF Urine Mucus NEGATIVE /LPF Urine Culture Indicated NO Urine Opiates Screen NEGATIVE NEGATIVE Urine Oxycodone Screen NEGATIVE NEGATIVE Urine Methadone Screen NEGATIVE NEGATIVE Urine Propoxyphene Screen NEGATIVE NEGATIVE Urine Barbiturates Screen NEGATIVE NEGATIVE Ur Tricyclic Antidepressants Screen NEGATIVE NEGATIVE Urine Phencyclidine Screen NEGATIVE NEGATIVE Urine Amphetamines Screen NEGATIVE NEGATIVE Urine Methamphetamines Screen NEGATIVE NEGATIVE Urine Benzodiazepines Screen NEGATIVE NEGATIVE Urine Cocaine Screen NEGATIVE NEGATIVE Urine Cannabinoids Screen NEGATIVE NEGATIVE White Blood Count 10.7 4.3-11.0 10^3/uL Red Blood Count 4.50 3.80-5.11 10^6/uL Hemoglobin 12.2 11.5-16.0 g/dL Hematocrit 37 35-52 % Mean Corpuscular Volume 82 80-99 fL Mean Corpuscular Hemoglobin 27 25-34 pg Mean Corpuscular Hemoglobin Concent 33 32-36 g/dL Red Cell Distribution Width 13.9 10.0-14.5 % Platelet Count 349 130-400 10^3/uL Mean Platelet Volume 10.9 9.0-12.2 fL Immature Granulocyte % (Auto) 0 % Neutrophils (%) (Auto) 70 42-75 % Lymphocytes (%) (Auto) 22 12-44 % Monocytes (%) (Auto) 7 0-12 % Eosinophils (%) (Auto) 1 0-10 % Basophils (%) (Auto) 0 0-10 % Neutrophils # (Auto) 7.5 1.8-7.8 10^3/uL Lymphocytes # (Auto) 2.3 1.0-4.0 10^3/uL Monocytes # (Auto) 0.8 0.0-1.0 10^3/uL Eosinophils # (Auto) 0.1 0.0-0.3 10^3/uL Basophils # (Auto) 0.0 0.0-0.1 10^3/uL Immature Granulocyte # (Auto) 0.0 0.0-0.1 10^3/uL Serum Test, Qualitative NEGATIVE NEGATIVE My Orders Orders - SEAMUS MAXWELL MD Drug Screen Stat (Urine) (11/21/22 16:41) Ua Culture If Indicated (11/21/22 16:41) Urine Bedside (11/21/22 16:43) Cbc With Automated Diff (11/21/22 16:53) Comprehensive Metabolic Panel (11/21/22 16:53) Hcg,Qualitative Serum (11/21/22 16:53) Ketorolac Injection (Toradol Injection) (11/21/22 17:15) Promethazine Injection (Phenergan Injec (11/21/22 17:15) Diphenhydramine Injection (Benadryl Inje (11/21/22 17:16) Vital Signs/I&O 11/21/22 16:20 Temp 36.7 Pulse 104 Resp 20 B/P (MAP) 130/108 (115) Capillary Refill : Less Than 3 Seconds Blood Pressure Mean: 115 Progress Note : Progress Note 1. MIGRAINE HEADACHE: - CBC: normal Hb - CMP: unremarkable - UA / UDS: negative - UCG and s. HCG is negative. - Toradol im/ Phenergan im/ Benadryl im given in ER. -Patient's headache is likely related to menstruation. Abdominal cramping and all other symptoms occurring at this time is also due to menstruation. -Patient stated that she has not seen a neurologist. Advised patient to make a neurology appointment for her migraine headaches. -Advised adequate hydration, as dehydration can trigger headache as well. -Advised naproxen every 12 hours as needed for headache. -Advised PCP and neurology follow-up within the next 7 days. Call for appointment. -The patient was seen in the ED, and treated appropriately to presentation at a specific point in time. Patient is informed that there is a possibility that disease and illness can evolve and change in acuity rapidly or slowly after patient is discharged from the ER. Precautionary advice given to the patient for immediate return to ER if symptoms worsen or do not resolve, and to seek emergency care sooner rather than later. Pt also advised on the importance of PCP follow up and compliance with management and follow up plan with PCP and/or specialist, as this is part of the management plan. Pt verbally expressed understanding. Departure Impression Primary Impression: Migraine headache Qualified Codes: G43.919 - Migraine, unspecified, intractable, without status migrainosus Additional Impression: Menstruation disturbance Disposition: HOME, SELF-CARE Condition: Improved Departure-Patient Inst. Referrals: YEISON SWEET MD (PCP) Primary Care Physician Patient Instructions: Migraines (DC), Menstruation, Menstrual Cramps, How to Keep Track of Your Headaches, Home Headache Remedies Add. Discharge Instructions: -Patient's headache abd symptoms likely related to menstruation. - Advised patient to make a neurology appointment for her migraine headaches. -Advised adequate hydration, as dehydration can trigger headache as well. -Advised naproxen every 12 hours as needed for headache. -Advised PCP and neurology follow-up within the next 7 days. Call for appointment. All discharge instructions reviewed with patient and/or family. Voiced understanding. SEAMUS MAXWELL MD Nov 21, 2022 16:40
[2022-11-21 16:45] LABS: BILIRUBIN,URINE NEGATIVE (NEGATIVE); CLARITY,URINE CLEAR; COLOR,URINE YELLOW; GLUCOSE, URINE (UA) NEGATIVE (NEGATIVE); KETONES,URINE NEGATIVE (NEGATIVE); LEUKOCYTE ESTERASE ,URINE NEGATIVE (NEGATIVE); NITRITE,URINE NEGATIVE (NEGATIVE); PROTEIN,URINE NEGATIVE (NEGATIVE)
[2022-11-21 16:49] LABS: AMPHETAMINE SCREEN, URINE NEGATIVE (NEGATIVE); BACTERIA,URINE NEGATIVE /HPF; BARBITURATE SCREEN URINE NEGATIVE (NEGATIVE); BENZODIAZEPINES SCREEN URINE NEGATIVE (NEGATIVE); CANNABINOID SCREEN, URINE NEGATIVE (NEGATIVE); COCAINE SCREEN URINE NEGATIVE (NEGATIVE); METHADONE STAT NEGATIVE (NEGATIVE); OPIATE SCREEN URINE NEGATIVE (NEGATIVE); OXYCODONE STAT NEGATIVE (NEGATIVE); PROPOXYPHENE STAT NEGATIVE (NEGATIVE); TRICYCLIC ANTIDEPRESSANTS SCRE NEGATIVE (NEGATIVE)
[2022-11-21 17:01] LABS: BASOPHILS % (AUTO) 0 % (0-10); EOSINOPHILS # (AUTO) 0.1 10^3/uL (0.0-0.3); EOSINOPHILS % (AUTO) 1 % (0-10); HEMATOCRIT 37 % (35-52); HEMOGLOBIN 12.2 g/dL (11.5-16.0); LYMPHOCYTES # (AUTO) 2.3 10^3/uL (1.0-4.0); LYMPHOCYTES % (AUTO) 22 % (12-44); MEAN CORPUSCULAR HEMOGLOBIN 27 pg (25-34); MEAN CORPUSCULAR HGB CONC 33 g/dL (32-36); MEAN CORPUSCULAR VOLUME 82 fL (80-99); MEAN PLATELET VOLUME 10.9 fL (9.0-12.2); MONOCYTES # (AUTO) 0.8 10^3/uL (0.0-1.0); MONOCYTES % (AUTO) 7 % (0-12); NEUTROPHILS # (AUTO) 7.5 10^3/uL (1.8-7.8); NEUTROPHILS % (AUTO) 70 % (42-75); PLATELET COUNT 349 10^3/uL (130-400); WHITE BLOOD COUNT 10.7 10^3/uL (4.3-11.0)
[2022-11-21] MEDS ORDERED: KETOROLAC 30 MG/ML VIAL IM STA (17:15)
[2022-11-21] MEDS ORDERED: PROMETHAZINE INJ 25 MG/ML (PHENERGAN) AMP IM STA (17:15)
[2022-11-21] MEDS ORDERED: diphenhydrAMINE 50 MG/ML INJ (BENADRYL) IM STA (17:16)
[2022-11-21 17:18] LABS: CALCIUM 9.2 MG/DL (8.5-10.1); CREATININE SERUM 0.71 MG/DL (0.60-1.30); POTASSIUM 3.5 MMOL/L (3.6-5.0)
[2022-11-21 17:19] LABS: ALBUMIN 4.1 GM/DL (3.2-4.5); BILIRUBIN,TOTAL 0.2 MG/DL (0.1-1.0); TOTAL PROTEIN 6.8 GM/DL (6.4-8.2)
[2022-11-21 17:38] VITALS: BP 136/75
== END 2022-11-21 17:38 | disposition home or self-care (01) ==
LOC: EDUNIT# 16:20 → ER FS 16:21
DX: G43.829 Menstrual migraine, not intractable, without status migrainosus (principal); Z91.040 Latex allergy status
CPT/HCPCS: 36415; 80053; 80306; 81000; 84703; 85025